=== PATIENT | female | born 1940 | race Caucasian/White ===

== ENCOUNTER 2019-03-06 14:49 | Inpatient (IN) | payer MEDICARE, MEDICAID ==
[~2019-03-06] VITALS: Ht 154.9 cm; Wt 45.2 kg
[2019-03-06] MEDS ORDERED: 0.9% SODIUM CHLORIDE 10 ML SYRINGE IVP PRN (15:30)
[2019-03-06] MEDS ORDERED: SODIUM CHLORIDE 0.9% 1,000 ML IV ONE ×3 (15:30→20:45)
[2019-03-06 15:42] LABS: BASOPHILS % (AUTO) 0.1 % (0.0-2.0); EOSINOPHILS % (AUTO) 0.1 % (1.0-6.0); HEMATOCRIT 38.2 % (36-46); LYMPHOCYTES # (AUTO) 0.4 K/uL (1.0-4.8); LYMPHOCYTES % (AUTO) 2.1 % (22.0-44.0); MEAN CORPUSCULAR HEMOGLOBIN 28.3 pg (26.0-34.0); MEAN CORPUSCULAR HGB CONC 31.5 G/dL (31.0-37.0); MEAN CORPUSCULAR VOLUME 90 fL (80-100); MONOCYTES # (AUTO) 0.4 K/uL (0.1-1.0); MONOCYTES % (AUTO) 2.3 % (2.0-9.0); NEUTROPHILS # (AUTO) 18.4 K/uL (1.8-7.7); PLATELET COUNT (AUTO) 334 K/uL (150-450); RED BLOOD CELL COUNT(AUTO) 4.25 MIL/uL (4.00-5.20); RED CELL DISTRIBUTION WIDTH 14.4 % (11.5-14.5)
[2019-03-06 15:43] LABS: NEUTROPHILS % (AUTO) 95.4 % (40.0-70.0)
[2019-03-06 16:02] LABS: CALCIUM, TOTAL 9.4 mg/dL (8.8-10.5); CREATININE 1.53 mg/dL (0.60-1.30); POTASSIUM 5.4 mmol/L (3.5-5.1)
[2019-03-06 16:08] LABS: ALBUMIN 2.9 g/dL (3.4-5.0); BILIRUBIN,TOTAL 0.7 mg/dL (0.1-1.0); INR 1.1 (0.9-1.1); TOTAL PROTEIN, SERUM 7.5 g/dL (6.4-8.2)
[2019-03-06 16:18] LABS: PLATELET MORPHOLOGY COMMENT LARGE PLTS PRESENT
[2019-03-06 16:29] LABS: APPEARANCE,URINE TURBID (CLEAR); GLUCOSE, URINE (UA) 100 mg/dL (NEGATIVE); KETONES,URINE 15 mg/dL (NEGATIVE); LEUKOCYTE ESTERASE ,URINE MODERATE (NEGATIVE); NITRATE,URINE NEGATIVE (NEGATIVE); OCCULT BLOOD,URINE SMALL (NEGATIVE); PROTEIN,URINE SEE CONFIRM (NEGATIVE)
[2019-03-06 16:30] LABS: BILIRUBIN,URINE PRELIM. POSITIVE (NEGATIVE)
[2019-03-06 16:41] LABS: BACTERIA,URINE Many /HPF (None Seen); SQUAMOUS EPITHELIAL CELL,UR Few /LPF (None Seen); SULFOSALICYLIC ACID,URINE 3+ (Negative)
[2019-03-06 16:42] LABS: INFLUENZA TYPE A NEGATIVE FOR TYPE A (NEGATIVE); INFLUENZA TYPE B NEGATIVE FOR TYPE B (NEGATIVE)
[2019-03-06] MEDS ORDERED: PIPERACILLIN/TAZO 3.375 GM/D5W 50 ML IV ONE (16:45)
[2019-03-06] MEDS ORDERED: INSULIN REGULAR, HUMAN 100 UNITS/ML SQ ONE (17:30)
[2019-03-06 19:07] LABS: GLUCOSE,POINT OF CARE 268 MG/DL (70-110)
[2019-03-06] MEDS ORDERED: ONDANSETRON HCL 4 MG/2 ML VIAL IVP PRN ×2 (19:15→20:45)
[2019-03-06] MEDS ORDERED: ACETAMINOPHEN 325 MG TABLET PO PRN ×2 (19:15→20:45)
[2019-03-06] MEDS ORDERED: MAGNESIUM HYDROXIDE SUSPENSION 30 ML UDCUP PO PRN (20:45)
[2019-03-06] MEDS ORDERED: BISACODYL 10 MG RECTAL RECTAL SUPPOSITORY PR PRN (20:45)
[2019-03-06] MEDS ORDERED: HYDROCODONE/ACETAMINOPHEN 5-325 MG TABLET PO PRN (20:45)
[2019-03-06] MEDS ORDERED: CefTRIAXone 1 GM/DEXTROSE 50 ML IV ONE (20:45)
[2019-03-06] MEDS ORDERED: MORPHINE SULFATE 2 MG/ML SYRINGE IVP PRN (20:45)
[2019-03-06] MEDS ORDERED: ZOLPIDEM TARTRATE 5 MG TABLET PO PRN (20:45)
[2019-03-06] MEDS: DOCUSATE SODIUM 100 MG CAPSULE PO SCH (21:09)
[2019-03-06 22:43] LABS: GLUCOSE,POINT OF CARE 214 MG/DL (70-110)
[2019-03-07 09:00] VITALS: BP 151/74
[2019-03-07] MEDS: PANTOPRAZOLE SODIUM 40 MG DR TABLET PO SCH (09:21)
[2019-03-07] MEDS: DOCUSATE SODIUM 100 MG CAPSULE PO SCH ×2 (09:21→22:04)
[2019-03-07] MEDS: HEPARIN SODIUM,PORCINE 5,000 UNITS/ML VIAL SQ SCH ×4 (09:22→23:03)
[2019-03-07 11:02] LABS: BASOPHILS % (AUTO) 0.1 % (0.0-2.0); EOSINOPHILS % (AUTO) 0.1 % (1.0-6.0); HEMATOCRIT 31.8 % (36-46); HEMOGLOBIN 10.5 g/dL (12.0-16.0); LYMPHOCYTES # (AUTO) 0.4 K/uL (1.0-4.8); LYMPHOCYTES % (AUTO) 3.4 % (22.0-44.0); MEAN CORPUSCULAR HEMOGLOBIN 29.3 pg (26.0-34.0); MEAN CORPUSCULAR HGB CONC 32.9 G/dL (31.0-37.0); MEAN CORPUSCULAR VOLUME 89 fL (80-100); MONOCYTES # (AUTO) 0.4 K/uL (0.1-1.0); MONOCYTES % (AUTO) 2.9 % (2.0-9.0); NEUTROPHILS # (AUTO) 12.5 K/uL (1.8-7.7); PLATELET COUNT (AUTO) 295 K/uL (150-450); RED BLOOD CELL COUNT(AUTO) 3.58 MIL/uL (4.00-5.20); RED CELL DISTRIBUTION WIDTH 14.5 % (11.5-14.5)
[2019-03-07 11:03] LABS: NEUTROPHILS % (AUTO) 93.5 % (40.0-70.0)
[2019-03-07 11:57] LABS: ALBUMIN 2.3 g/dL (3.4-5.0); ALKALINE PHOSPHATASE 75 U/L (46-116); ANION GAP 11 mmol/L (8-16); ASPARTATE AMINOTRANSFERASE 11 U/L (15-37); BILIRUBIN,TOTAL 0.5 mg/dL (0.1-1.0); CALCIUM, TOTAL 8.2 mg/dL (8.8-10.5); CARBON DIOXIDE 23 mmol/L (22-29); CHLORIDE 110 mmol/L (98-107); CREATININE 0.84 mg/dL (0.60-1.30); GLUCOSE,RANDOM 189 mg/dL (70-110); POTASSIUM 3.5 mmol/L (3.5-5.1); SODIUM SERUM 144 mmol/L (136-145); TOTAL PROTEIN, SERUM 6.2 g/dL (6.4-8.2); UREA NITROGEN, BLOOD 25 mg/dL (7-18)
[2019-03-07 11:58] LABS: GLOMERULAR FILTR. RATE CALC > 60 mL/min (>60)
[2019-03-07 12:06] LABS: ALANINE AMINOTRANSFERASE 5 U/L (12-78)
[2019-03-07 12:34] VITALS: BP 148/73
[2019-03-07 16:15] VITALS: BP 159/88
[2019-03-07] MEDS: SODIUM CHLORIDE 0.9% 1,000 ML IV SCH (18:18)
[2019-03-07 19:54] VITALS: BP 157/76
[2019-03-07] MEDS: CefTRIAXone 1 GM/DEXTROSE 50 ML IV SCH (22:04)
[2019-03-07 23:22] VITALS: BP 162/78
[2019-03-08 06:07] VITALS: BP 163/89
[2019-03-08] MEDS: SODIUM CHLORIDE 0.9% 1,000 ML IV SCH ×2 (06:14→17:29)
[2019-03-08 06:43] LABS: BASOPHILS % (AUTO) 0.2 % (0.0-2.0); EOSINOPHILS % (AUTO) 0 % (1.0-6.0); HEMATOCRIT 29.9 % (36-46); HEMOGLOBIN 9.8 g/dL (12.0-16.0); LYMPHOCYTES # (AUTO) 0.6 K/uL (1.0-4.8); LYMPHOCYTES % (AUTO) 7.8 % (22.0-44.0); MEAN CORPUSCULAR HEMOGLOBIN 29.2 pg (26.0-34.0); MEAN CORPUSCULAR HGB CONC 32.7 G/dL (31.0-37.0); MEAN CORPUSCULAR VOLUME 89 fL (80-100); MONOCYTES # (AUTO) 0.4 K/uL (0.1-1.0); MONOCYTES % (AUTO) 4.6 % (2.0-9.0); PLATELET COUNT (AUTO) 295 K/uL (150-450); RED BLOOD CELL COUNT(AUTO) 3.35 MIL/uL (4.00-5.20); RED CELL DISTRIBUTION WIDTH 14.5 % (11.5-14.5)
[2019-03-08 06:50] LABS: NEUTROPHILS % (AUTO) 87.4 % (40.0-70.0)
[2019-03-08 07:09] LABS: ALANINE AMINOTRANSFERASE 6 U/L (12-78); ALBUMIN 2.1 g/dL (3.4-5.0); ALKALINE PHOSPHATASE 78 U/L (46-116); ANION GAP 11 mmol/L (8-16); ASPARTATE AMINOTRANSFERASE 8 U/L (15-37); BILIRUBIN,TOTAL 0.3 mg/dL (0.1-1.0); CALCIUM, TOTAL 8.1 mg/dL (8.8-10.5); CARBON DIOXIDE 24 mmol/L (22-29); CHLORIDE 111 mmol/L (98-107); CREATININE 0.77 mg/dL (0.60-1.30); GLUCOSE,RANDOM 203 mg/dL (70-110); POTASSIUM 3.1 mmol/L (3.5-5.1); SODIUM SERUM 146 mmol/L (136-145); TOTAL PROTEIN, SERUM 5.9 g/dL (6.4-8.2); UREA NITROGEN, BLOOD 16 mg/dL (7-18)
[2019-03-08 07:14] LABS: GLOMERULAR FILTR. RATE CALC > 60 mL/min (>60)
[2019-03-08 07:27] LABS: HEMOGLOBIN A1C 8.5 % (4.5-6.2)
[2019-03-08] MEDS: HEPARIN SODIUM,PORCINE 5,000 UNITS/ML VIAL SQ SCH ×2 (08:38→17:26)
[2019-03-08] MEDS: DOCUSATE SODIUM 100 MG CAPSULE PO SCH ×2 (08:39→21:00)
[2019-03-08] MEDS: PANTOPRAZOLE SODIUM 40 MG DR TABLET PO SCH (08:39)
[2019-03-08] MEDS ORDERED: POTASSIUM CHLORIDE 20 MEQ ER TABLET PO ONE (10:15)
[2019-03-08] MEDS ORDERED: POTASSIUM CHL 10 MEQ/WATER 50 ML IV ONE ×2 (10:46→12:24)
[2019-03-08 12:03] VITALS: BP 164/97
[2019-03-08] MEDS: HydrALAZINE HCL 25 MG TABLET PO SCH ×3 (17:27→21:08)
[2019-03-08] MEDS: POTASSIUM CHL 10 MEQ/WATER 50 ML IV SCH ×4 (17:27→21:06)
[2019-03-08 19:07] VITALS: BP 157/88
[2019-03-08 20:33] VITALS: BP 139/66
[2019-03-08] MEDS: CefTRIAXone 1 GM/DEXTROSE 50 ML IV SCH (22:30)
[2019-03-08 23:13] VITALS: BP 159/77
[2019-03-09] VITALS (7 sets, daily range): BP systolic 115–167; BP diastolic 58–83
[2019-03-09 05:23] LABS: GLUCOMETER DEV NAME(LOC) 5N.2; GLUCOSE,POINT OF CARE 157 MG/DL (70-110)
[2019-03-09] MEDS: SODIUM CHLORIDE 0.9% 1,000 ML IV SCH ×2 (05:26→20:42)
[2019-03-09 06:43] LABS: BASOPHILS % (AUTO) 0.3 % (0.0-2.0); EOSINOPHILS % (AUTO) 0.4 % (1.0-6.0); HEMATOCRIT 32.2 % (36-46); HEMOGLOBIN 10.4 g/dL (12.0-16.0); LYMPHOCYTES # (AUTO) 0.9 K/uL (1.0-4.8); LYMPHOCYTES % (AUTO) 13.8 % (22.0-44.0); MEAN CORPUSCULAR HEMOGLOBIN 28.6 pg (26.0-34.0); MEAN CORPUSCULAR HGB CONC 32.3 G/dL (31.0-37.0); MEAN CORPUSCULAR VOLUME 88 fL (80-100); MONOCYTES # (AUTO) 0.3 K/uL (0.1-1.0); MONOCYTES % (AUTO) 5.1 % (2.0-9.0); NEUTROPHILS # (AUTO) 5.3 K/uL (1.8-7.7); NEUTROPHILS % (AUTO) 80.4 % (40.0-70.0); PLATELET COUNT (AUTO) 380 K/uL (150-450); RED BLOOD CELL COUNT(AUTO) 3.65 MIL/uL (4.00-5.20); RED CELL DISTRIBUTION WIDTH 14.5 % (11.5-14.5)
[2019-03-09 07:01] LABS: ANION GAP 14 mmol/L (8-16); CALCIUM, TOTAL 8.2 mg/dL (8.8-10.5); CARBON DIOXIDE 23 mmol/L (22-29); CHLORIDE 103 mmol/L (98-107); CREATININE 0.69 mg/dL (0.60-1.30); GLOMERULAR FILTR. RATE CALC > 60 mL/min (>60); GLUCOSE,RANDOM 197 mg/dL (70-110); POTASSIUM 3.8 mmol/L (3.5-5.1); SODIUM SERUM 140 mmol/L (136-145); UREA NITROGEN, BLOOD 8 mg/dL (7-18)
[2019-03-09] MEDS: HydrALAZINE HCL 25 MG TABLET PO SCH ×5 (08:38→21:00)
[2019-03-09] MEDS: HEPARIN SODIUM,PORCINE 5,000 UNITS/ML VIAL SQ SCH ×4 (08:38→22:58)
[2019-03-09] MEDS: DOCUSATE SODIUM 100 MG CAPSULE PO SCH ×2 (08:44→20:40)
[2019-03-09] MEDS: PANTOPRAZOLE SODIUM 40 MG DR TABLET PO SCH (08:44)
[2019-03-09] MEDS ORDERED: MAGNESIUM OXIDE 400 MG TABLET PO ONE (10:00)
[2019-03-09] MEDS ORDERED: DEXTROSE 50%-WATER 25 GM/50 ML SYRINGE IVP PRN (10:00)
[2019-03-09] MEDS: INSULIN LISPRO 100 UNITS/ML SQ PRN (11:10)
[2019-03-09 11:11] LABS: GLUCOMETER DEV NAME(LOC) 5N.2; GLUCOSE,POINT OF CARE 132 MG/DL (70-110)
[2019-03-09 12:02] LABS: GLUCOMETER DEV NAME(LOC) 5N.1; GLUCOSE,POINT OF CARE 231 MG/DL (70-110)
[2019-03-09] MEDS ORDERED: MAGNESIUM SULFATE 2 GM/WATER 50 ML IV ONE (12:15)
[2019-03-09] MEDS: CefoTEtan DISOD 1 GM/DEXTROSE 50 ML IV SCH (16:22)
[2019-03-09 20:06] LABS: GLUCOMETER DEV NAME(LOC) 5N.1; GLUCOSE,POINT OF CARE 113 MG/DL (70-110)
[2019-03-10] MEDS: CefoTEtan DISOD 1 GM/DEXTROSE 50 ML IV SCH ×2 (03:49→15:36)
[2019-03-10 06:01] VITALS: BP 152/75
[2019-03-10 07:54] VITALS: BP 156/72
[2019-03-10] MEDS: DOCUSATE SODIUM 100 MG CAPSULE PO SCH ×2 (10:01→21:00)
[2019-03-10] MEDS: HydrALAZINE HCL 25 MG TABLET PO SCH ×4 (10:01→21:00)
[2019-03-10] MEDS: AmLODIPine BESYLATE 5 MG TABLET PO SCH (10:01)
[2019-03-10] MEDS: PANTOPRAZOLE SODIUM 40 MG DR TABLET PO SCH (10:01)
[2019-03-10] MEDS: HEPARIN SODIUM,PORCINE 5,000 UNITS/ML VIAL SQ SCH ×3 (10:01→23:06)
[2019-03-10] MEDS: SODIUM CHLORIDE 0.9% 1,000 ML IV SCH (10:02)
[2019-03-10 12:13] VITALS: BP 149/75
[2019-03-10] MEDS: INSULIN LISPRO 100 UNITS/ML SQ PRN (13:30)
[2019-03-10 17:10] VITALS: BP 149/71
[2019-03-10 19:10] VITALS: BP 146/72
[2019-03-10] MEDS ORDERED: MAGNESIUM SULFATE 3 GM in DEXTROSE 5%-WATER 100 ML IV ONE (22:15)
[2019-03-10 23:44] VITALS: BP 145/75
[2019-03-11] MEDS: CefoTEtan DISOD 1 GM/DEXTROSE 50 ML IV SCH ×2 (03:13→14:41)
[2019-03-11 04:21] VITALS: BP 136/63
[2019-03-11] MEDS: SODIUM CHLORIDE 0.9% 1,000 ML IV SCH ×2 (04:40→20:47)
[2019-03-11 05:10] LABS: GLUCOMETER DEV NAME(LOC) 5N.2; GLUCOSE,POINT OF CARE 182 MG/DL (70-110)
[2019-03-11 05:10] LABS: GLUCOMETER DEV NAME(LOC) 5N.2; GLUCOSE,POINT OF CARE 140 MG/DL (70-110)
[2019-03-11 05:11] LABS: GLUCOMETER DEV NAME(LOC) 5N.2; GLUCOSE,POINT OF CARE 109 MG/DL (70-110)
[2019-03-11 05:11] LABS: GLUCOMETER DEV NAME(LOC) 5N.1; GLUCOSE,POINT OF CARE 115 MG/DL (70-110)
[2019-03-11 07:07] VITALS: BP 158/68
[2019-03-11] MEDS: HEPARIN SODIUM,PORCINE 5,000 UNITS/ML VIAL SQ SCH ×2 (08:00→16:00)
[2019-03-11] MEDS: PANTOPRAZOLE SODIUM 40 MG DR TABLET PO SCH (09:00)
[2019-03-11] MEDS: DOCUSATE SODIUM 100 MG CAPSULE PO SCH ×2 (09:00→20:01)
[2019-03-11] MEDS: HydrALAZINE HCL 25 MG TABLET PO SCH ×4 (09:00→20:01)
[2019-03-11] MEDS: AmLODIPine BESYLATE 5 MG TABLET PO SCH (09:00)
[2019-03-11 11:38] VITALS: BP 164/79
[2019-03-11] MEDS: INSULIN LISPRO 100 UNITS/ML SQ PRN (12:34)
[2019-03-11 15:09] VITALS: BP 157/73
[2019-03-11 19:11] VITALS: BP 128/61
[2019-03-12] VITALS (7 sets, daily range): BP systolic 93–164; BP diastolic 56–103
[2019-03-12] MEDS: CefoTEtan DISOD 1 GM/DEXTROSE 50 ML IV SCH ×2 (03:16→14:28)
[2019-03-12 06:43] LABS: GLUCOMETER DEV NAME(LOC) 5N.2; GLUCOSE,POINT OF CARE 116 MG/DL (70-110)
[2019-03-12 06:43] LABS: GLUCOMETER DEV NAME(LOC) 5N.2; GLUCOSE,POINT OF CARE 177 MG/DL (70-110)
[2019-03-12 06:43] LABS: GLUCOMETER DEV NAME(LOC) 5N.2; GLUCOSE,POINT OF CARE 131 MG/DL (70-110)
[2019-03-12] MEDS: INSULIN LISPRO 100 UNITS/ML SQ PRN (06:47)
[2019-03-12] MEDS: HEPARIN SODIUM,PORCINE 5,000 UNITS/ML VIAL SQ SCH ×4 (08:00→23:54)
[2019-03-12] MEDS: AmLODIPine BESYLATE 5 MG TABLET PO SCH (08:56)
[2019-03-12] MEDS: PANTOPRAZOLE SODIUM 40 MG DR TABLET PO SCH (08:56)
[2019-03-12] MEDS: DOCUSATE SODIUM 100 MG CAPSULE PO SCH ×2 (08:56→21:00)
[2019-03-12] MEDS: HydrALAZINE HCL 25 MG TABLET PO SCH ×4 (08:56→21:00)
[2019-03-12] MEDS: SODIUM CHLORIDE 0.9% 1,000 ML IV SCH (12:15)
[2019-03-12] MEDS ORDERED: HydrALAZINE HCL 20 MG/ML VIAL IVP ONE (16:00)
[2019-03-12 20:09] LABS: GLUCOMETER DEV NAME(LOC) 5N.1; GLUCOSE,POINT OF CARE 117 MG/DL (70-110)
[2019-03-12 20:09] LABS: GLUCOMETER DEV NAME(LOC) 5N.1; GLUCOSE,POINT OF CARE 159 MG/DL (70-110)
[2019-03-12 20:09] LABS: GLUCOMETER DEV NAME(LOC) 5N.1; GLUCOSE,POINT OF CARE 88 MG/DL (70-110)
[2019-03-12 20:58] LABS: GLUCOMETER DEV NAME(LOC) 5N.1; GLUCOSE,POINT OF CARE 179 MG/DL (70-110)
[2019-03-13 00:36] VITALS: BP 144/68
[2019-03-13] MEDS: CefoTEtan DISOD 1 GM/DEXTROSE 50 ML IV SCH ×2 (03:46→13:39)
[2019-03-13] MEDS: SODIUM CHLORIDE 0.9% 1,000 ML IV SCH (03:46)
[2019-03-13 04:32] VITALS: BP 158/70
[2019-03-13 07:38] VITALS: BP 140/61
[2019-03-13] MEDS: HEPARIN SODIUM,PORCINE 5,000 UNITS/ML VIAL SQ SCH (09:19)
[2019-03-13] MEDS: PANTOPRAZOLE SODIUM 40 MG DR TABLET PO SCH (09:19)
[2019-03-13] MEDS: DOCUSATE SODIUM 100 MG CAPSULE PO SCH (09:19)
[2019-03-13] MEDS: HydrALAZINE HCL 25 MG TABLET PO SCH ×2 (09:20→13:00)
[2019-03-13] MEDS: AmLODIPine BESYLATE 5 MG TABLET PO SCH (09:20)
[2019-03-13 11:35] VITALS: BP 151/71
[2019-03-13 20:19] LABS: GLUCOMETER DEV NAME(LOC) 5N.1; GLUCOSE,POINT OF CARE 165 MG/DL (70-110)
[2019-03-13 20:20] LABS: GLUCOMETER DEV NAME(LOC) 5N.2; GLUCOSE,POINT OF CARE 202 MG/DL (70-110)
== END 2019-03-13 15:10 | DRG 871 ==
LOC: EMS 14:51 → 5N 03-07 05:30
PROVIDERS: ADMIT Internal Medicine; ATTEND Internal Medicine
DX: A41.9 Sepsis, unspecified organism (principal); G93.41 Metabolic encephalopathy; N39.0 Urinary tract infection, site not specified; N17.9 Acute kidney failure, unspecified; Z16.12 Extended spectrum beta lactamase (ESBL) resistance; E87.5 Hyperkalemia; B96.89 Other specified bacterial agents as the cause of diseases classified elsewhere; E11.65 Type 2 diabetes mellitus with hyperglycemia; E83.42 Hypomagnesemia; E87.6 Hypokalemia
CPT/HCPCS: 83036; 83605; 83735; 84100; 84145; 87040; 87086; 87804; 92610; 93005; 97110; 97162; 97530; J0360; J0696; J1644; J1815; J2543; J3475; J3480; J3490; J7030; J7060

== ENCOUNTER 2019-03-16 19:15 | Inpatient (IN) | payer MEDICARE, MEDICAID ==
[~2019-03-16] VITALS: Ht 165.1 cm; Wt 54.2 kg
[2019-03-16 20:14] LABS: BASOPHILS % (AUTO) 0.1 % (0.0-2.0); EOSINOPHILS % (AUTO) 0 % (1.0-6.0); HEMATOCRIT 31.9 % (36-46); HEMOGLOBIN 10.7 g/dL (12.0-16.0); LYMPHOCYTES # (AUTO) 0.5 K/uL (1.0-4.8); LYMPHOCYTES % (AUTO) 7.7 % (22.0-44.0); MEAN CORPUSCULAR HEMOGLOBIN 28.6 pg (26.0-34.0); MEAN CORPUSCULAR HGB CONC 33.5 G/dL (31.0-37.0); MEAN CORPUSCULAR VOLUME 85 fL (80-100); MONOCYTES # (AUTO) 0.2 K/uL (0.1-1.0); MONOCYTES % (AUTO) 3.3 % (2.0-9.0); NEUTROPHILS # (AUTO) 5.6 K/uL (1.8-7.7); PLATELET COUNT (AUTO) 499 K/uL (150-450); RED BLOOD CELL COUNT(AUTO) 3.73 MIL/uL (4.00-5.20); RED CELL DISTRIBUTION WIDTH 15.5 % (11.5-14.5)
[2019-03-16 20:15] LABS: NEUTROPHILS % (AUTO) 88.9 % (40.0-70.0)
[2019-03-16] MEDS ORDERED: GLIP5 PO (20:17)
[2019-03-16] MEDS ORDERED: ASCO500 PO (20:17)
[2019-03-16] MEDS ORDERED: ZINC1CAP2 PO (20:17)
[2019-03-16] MEDS ORDERED: METO-558 PO (20:17)
[2019-03-16] MEDS ORDERED: AMLO10TA7 PO (20:17)
[2019-03-16] MEDS ORDERED: HYDR25TA84 PO (20:17)
[2019-03-16] MEDS ORDERED: POTA20PA41 PO (20:17)
[2019-03-16] MEDS ORDERED: CEFO1I IV (20:17)
[2019-03-16 20:29] LABS: CREATININE 1.04 mg/dL (0.60-1.30)
[2019-03-16 20:30] LABS: ALBUMIN 2.4 g/dL (3.4-5.0); BILIRUBIN,TOTAL 0.4 mg/dL (0.1-1.0); CALCIUM, TOTAL 8.8 mg/dL (8.8-10.5); MAGNESIUM 1.7 mg/dL (1.80-2.40); TOTAL PROTEIN, SERUM 6.5 g/dL (6.4-8.2)
[2019-03-16 20:32] LABS: POTASSIUM 2.1 mmol/L (3.5-5.1)
[2019-03-16 20:40] LABS: PLATELET MORPHOLOGY COMMENT INCREASED
[2019-03-16] MEDS ORDERED: POTASSIUM CHLORIDE 20 MEQ ER TABLET PO PRN (20:45)
[2019-03-16] MEDS ORDERED: 0.9% SODIUM CHLORIDE 10 ML SYRINGE IVP PRN (21:00)
[2019-03-16] MEDS ORDERED: ONDANSETRON HCL 4 MG/2 ML VIAL IVP PRN (21:00)
[2019-03-16] MEDS ORDERED: ACETAMINOPHEN 325 MG TABLET PO PRN (21:00)
[2019-03-16] MEDS ORDERED: ASPIRIN 325 MG TABLET PO ONE (21:15)
[2019-03-16] MEDS ORDERED: ASPIRIN 300 MG RECTAL SUPPOSITORY PR ONE (21:45)
[2019-03-16] MEDS ORDERED: POTASSIUM CHLORIDE 10% 40 MEQ/30 ML LIQUID UDCUP PO ONE (21:45)
[2019-03-16] MEDS: POTASSIUM CHL 10 MEQ/WATER 50 ML IV PRN ×2 (22:43→23:37)
[2019-03-16] MEDS ORDERED: CefoTEtan DISODIUM 1 GM/VIAL IV SCH (23:00)
[2019-03-17] VITALS (9 sets, daily range): BP systolic 79–147; BP diastolic 36–67
[2019-03-17] MEDS: POTASSIUM CHL 10 MEQ/WATER 50 ML IV PRN ×6 (00:43→12:05)
[2019-03-17] MEDS: CefoTEtan DISOD 1 GM/DEXTROSE 50 ML IV SCH ×2 (03:07→14:39)
[2019-03-17 04:31] LABS: BASOPHILS % (AUTO) 0.1 % (0.0-2.0); EOSINOPHILS % (AUTO) 0 % (1.0-6.0); HEMATOCRIT 29.6 % (36-46); HEMOGLOBIN 10.1 g/dL (12.0-16.0); LYMPHOCYTES # (AUTO) 0.5 K/uL (1.0-4.8); LYMPHOCYTES % (AUTO) 6.4 % (22.0-44.0); MEAN CORPUSCULAR HEMOGLOBIN 29.3 pg (26.0-34.0); MEAN CORPUSCULAR HGB CONC 33.9 G/dL (31.0-37.0); MEAN CORPUSCULAR VOLUME 86 fL (80-100); MONOCYTES # (AUTO) 0.3 K/uL (0.1-1.0); MONOCYTES % (AUTO) 3.2 % (2.0-9.0); NEUTROPHILS # (AUTO) 7.3 K/uL (1.8-7.7); PLATELET COUNT (AUTO) 525 K/uL (150-450); RED BLOOD CELL COUNT(AUTO) 3.44 MIL/uL (4.00-5.20); RED CELL DISTRIBUTION WIDTH 15.7 % (11.5-14.5)
[2019-03-17 04:32] LABS: NEUTROPHILS % (AUTO) 90.3 % (40.0-70.0)
[2019-03-17 04:40] LABS: ALBUMIN 2.4 g/dL (3.4-5.0); BILIRUBIN,TOTAL 0.4 mg/dL (0.1-1.0); CALCIUM, TOTAL 8.7 mg/dL (8.8-10.5); CREATININE 1.3 mg/dL (0.60-1.30); MAGNESIUM 1.5 mg/dL (1.80-2.40); TOTAL PROTEIN, SERUM 6.3 g/dL (6.4-8.2)
[2019-03-17 04:43] LABS: POTASSIUM 2.9 mmol/L (3.5-5.1)
[2019-03-17] MEDS ORDERED: DEXTROSE 50%-WATER 25 GM/50 ML SYRINGE IVP PRN ×2 (05:15→06:15)
[2019-03-17] MEDS ORDERED: MAGNESIUM OXIDE 400 MG TABLET PO PRN (05:15)
[2019-03-17] MEDS ORDERED: MAGNESIUM SULFATE 4 GM/WATER 100 ML IV PRN (05:15)
[2019-03-17] MEDS ORDERED: MAGNESIUM SULFATE 2 GM/WATER 50 ML IV PRN (05:15)
[2019-03-17] MEDS ORDERED: PNEUMOCOCCAL VACCINE POLYVALENT 0.5 ML VIAL [PPSV23] IM ONE (05:30)
[2019-03-17] MEDS ORDERED: INFLUENZA VIRUS VACCINE QVS 2019-20 (3YR+)/PF 60 MCG/0.5 ML SYRINGE IM ONE (05:30)
[2019-03-17] MEDS: INSULIN LISPRO 100 UNITS/ML SQ PRN ×3 (06:01→17:42)
[2019-03-17] MEDS ORDERED: INSULIN LISPRO 100 UNITS/ML SQ PRN (06:15)
[2019-03-17] MEDS ORDERED: ACETAMINOPHEN 325 MG TABLET PO PRN (06:15)
[2019-03-17] MEDS ORDERED: MAGNESIUM HYDROXIDE SUSPENSION 30 ML UDCUP PO PRN (06:15)
[2019-03-17] MEDS ORDERED: 0.9% SODIUM CHLORIDE 10 ML SYRINGE IVP PRN (06:15)
[2019-03-17] MEDS ORDERED: ONDANSETRON HCL 4 MG/2 ML VIAL IVP PRN (06:15)
[2019-03-17] MEDS ORDERED: OxyCODONE HCL/ACETAMINOPHEN 5-325 MG TABLET PO PRN ×2 (06:15)
[2019-03-17] MEDS: AmLODIPine BESYLATE 10 MG TABLET PO SCH (08:45)
[2019-03-17] MEDS: METOPROLOL SUCCINATE 50 MG ER TABLET PO SCH (08:45)
[2019-03-17] MEDS: HydrALAZINE HCL 25 MG TABLET PO SCH ×3 (08:45→21:00)
[2019-03-17] MEDS ORDERED: DOCUSATE SODIUM 100 MG CAPSULE PO SCH (09:00)
[2019-03-17] MEDS: MULTIVITAMINS, THERAPEUTIC 15 ML UDCUP PO SCH (10:30)
[2019-03-17] MEDS: ASPIRIN 81 MG CHEWABLE TABLET PO SCH (10:45)
[2019-03-17] MEDS ORDERED: METOPROLOL TARTRATE 5 MG/5 ML VIAL IVP ONE (11:45)
[2019-03-17 12:19] LABS: B-TYPE NATRIURETIC PEPTIDE 128 pg/mL (0-100)
[2019-03-17] MEDS ORDERED: DIGOXIN 250 MCG/ML 2 ML AMP IVP ONE (12:30)
[2019-03-17] MEDS ORDERED: SODIUM CHLORIDE 0.9% 500 ML IV SCH (12:48)
[2019-03-17] MEDS ORDERED: SODIUM CHLORIDE 0.9% 500 ML IV ONE ×2 (13:00→17:15)
[2019-03-17] MEDS: SODIUM CHLORIDE 0.9% 1,000 ML IV SCH ×2 (14:40→23:00)
[2019-03-17 14:58] LABS: GLUCOMETER DEV NAME(LOC) 5S.1; GLUCOSE,POINT OF CARE 263 MG/DL (70-110)
[2019-03-17 14:59] LABS: GLUCOMETER DEV NAME(LOC) 5S.1; GLUCOSE,POINT OF CARE 288 MG/DL (70-110)
[2019-03-17 15:00] LABS: GLUCOMETER DEV NAME(LOC) 5N.2; GLUCOSE,POINT OF CARE 331 MG/DL (70-110)
[2019-03-17] MEDS ORDERED: SODIUM CHLORIDE 0.9% 1,000 ML IV SCH (19:30)
[2019-03-17 21:12] LABS: FREE T4 (FREE THYROXINE) 0.91 ng/dL (0.76-1.46); THYROID STIMULATING HORMONE 1.32 uIU/mL (0.36-3.74)
[2019-03-18 00:34] VITALS: BP 130/53
[2019-03-18] MEDS: CefoTEtan DISOD 1 GM/DEXTROSE 50 ML IV SCH ×2 (02:53→15:08)
[2019-03-18] MEDS ORDERED: DIGOXIN 250 MCG/ML 2 ML AMP IVP ONE (03:15)
[2019-03-18 04:16] VITALS: BP 111/45
[2019-03-18 06:39] LABS: GLUCOMETER DEV NAME(LOC) 5N.2; GLUCOSE,POINT OF CARE 226 MG/DL (70-110)
[2019-03-18 06:39] LABS: GLUCOMETER DEV NAME(LOC) 5N.1; GLUCOSE,POINT OF CARE 310 MG/DL (70-110)
[2019-03-18 06:39] LABS: GLUCOMETER DEV NAME(LOC) 5N.1; GLUCOSE,POINT OF CARE 342 MG/DL (70-110)
[2019-03-18] MEDS: INSULIN LISPRO 100 UNITS/ML SQ PRN ×4 (06:52→22:38)
[2019-03-18 07:11] VITALS: BP 123/56
[2019-03-18] MEDS: MULTIVITAMINS, THERAPEUTIC 15 ML UDCUP PO SCH (09:00)
[2019-03-18] MEDS: HydrALAZINE HCL 25 MG TABLET PO SCH ×3 (09:00→21:00)
[2019-03-18] MEDS: METOPROLOL SUCCINATE 50 MG ER TABLET PO SCH ×2 (09:00→21:00)
[2019-03-18] MEDS: ASPIRIN 81 MG CHEWABLE TABLET PO SCH (09:00)
[2019-03-18] MEDS: AmLODIPine BESYLATE 10 MG TABLET PO SCH (09:00)
[2019-03-18 09:42] LABS: EOSINOPHILS % (AUTO) 0 % (1.0-6.0); HEMATOCRIT 24.3 % (36-46); HEMOGLOBIN 8.4 g/dL (12.0-16.0); LYMPHOCYTES # (AUTO) 0.4 K/uL (1.0-4.8); LYMPHOCYTES % (AUTO) 3.9 % (22.0-44.0); MEAN CORPUSCULAR HEMOGLOBIN 29.8 pg (26.0-34.0); MEAN CORPUSCULAR HGB CONC 34.8 G/dL (31.0-37.0); MEAN CORPUSCULAR VOLUME 86 fL (80-100); MONOCYTES # (AUTO) 0.3 K/uL (0.1-1.0); MONOCYTES % (AUTO) 2.4 % (2.0-9.0); NEUTROPHILS # (AUTO) 10.2 K/uL (1.8-7.7); NEUTROPHILS % (AUTO) 93.7 % (40.0-70.0); PLATELET COUNT (AUTO) 438 K/uL (150-450); RED BLOOD CELL COUNT(AUTO) 2.84 MIL/uL (4.00-5.20); RED CELL DISTRIBUTION WIDTH 15.6 % (11.5-14.5)
[2019-03-18 10:06] LABS: SALICYLATE 3.4 mg/dL (2.8-20.0)
[2019-03-18 10:17] LABS: GLUCOMETER DEV NAME(LOC) 5N.1; GLUCOSE,POINT OF CARE 270 MG/DL (70-110)
[2019-03-18 10:17] LABS: ANION GAP 14 mmol/L (8-16); CALCIUM, TOTAL 8.1 mg/dL (8.8-10.5); CARBON DIOXIDE 22 mmol/L (22-29); CHLORIDE 113 mmol/L (98-107); CHOL/HDL RATIO 3.1 (3.9-5.7); CHOLESTEROL 144 mg/dL (131-200); CREATININE 1.28 mg/dL (0.60-1.30); GLOMERULAR FILTR. RATE CALC 40 mL/min (>60); GLUCOSE,RANDOM 233 mg/dL (70-110); HDL CHOLESTEROL 47 mg/dL (40-60); SODIUM SERUM 149 mmol/L (136-145); TRIGLYCERIDES 100 mg/dL (15-150); UREA NITROGEN, BLOOD 24 mg/dL (7-18)
[2019-03-18 10:18] LABS: LDL CHOL (CALC.) 77 mg/dL (0-130); THYROID STIMULATING HORMONE 1.36 uIU/mL (0.36-3.74)
[2019-03-18 10:20] LABS: PHOSPHORUS 0.9 mg/dL (2.5-4.9); POTASSIUM 2.8 mmol/L (3.5-5.1)
[2019-03-18] MEDS: POTASSIUM CHL 10 MEQ/WATER 50 ML IV PRN ×5 (10:28→22:27)
[2019-03-18] MEDS ORDERED: SODIUM PHOS,M-BASIC-D-BASIC 30 MEQ in DEXTROSE 5%-WATER 150 ML IV ONE (10:30)
[2019-03-18 10:53] LABS: LACTIC ACID 2.1 mmol/L (0.4-2.0)
[2019-03-18 11:10] VITALS: BP 162/73
[2019-03-18 11:18] LABS: ACETAMINOPHEN < 2 mcg/mL (10-30)
[2019-03-18] MEDS ORDERED: SODIUM PHOS,M-BASIC-D-BASIC 30 MMOL in DEXTROSE 5%-WATER 250 ML IV ONE (11:30)
[2019-03-18 12:00] LABS: APPEARANCE,URINE CLOUDY (CLEAR); BILIRUBIN,URINE NEGATIVE (NEGATIVE); GLUCOSE, URINE (UA) 500 mg/dL (NEGATIVE); KETONES,URINE 40 mg/dL (NEGATIVE); LEUKOCYTE ESTERASE ,URINE SMALL (NEGATIVE); NITRATE,URINE NEGATIVE (NEGATIVE); OCCULT BLOOD,URINE NEGATIVE (NEGATIVE); PH,URINE 5.5 (5.0-8.0); PROTEIN,URINE TRACE (NEGATIVE); UROBILINOGEN,URINE 0.2 mg/dL (<=1.0)
[2019-03-18 12:06] LABS: BACTERIA,URINE Few /HPF (None Seen); RBC,URINE None Seen /HPF (0-2); YEAST,URINE Many /HPF (None Seen)
[2019-03-18] MEDS: DEXTROSE 5%-WATER 1,000 ML IV SCH (12:18)
[2019-03-18 12:40] LABS: CREATININE,URINE RANDOM 32.7 mg/dL (30.0-125.0); MAGNESIUM,URINE RANDOM 6.3 mg/dL (1.0-13.0); POTASSIUM,URINE RANDOM 26 mmol/L (12-75); PROTEIN,URINE RANDOM 63 mg/dL (0-11.9); SODIUM,URINE RANDOM 75 mmol/l (20-110); UREA NITROGEN,URINE RANDOM 415 mg/dL (350-1000)
[2019-03-18] MEDS ORDERED: SODIUM CHLORIDE 0.9% 250 ML IV ONE (14:05)
[2019-03-18 14:57] VITALS: BP 118/48
[2019-03-18] MEDS ORDERED: SODIUM CHLORIDE 0.9% 500 ML IV ONE (17:15)
[2019-03-18 18:49] LABS: CALCIUM, TOTAL 7.5 mg/dL (8.8-10.5); CREATININE 1.04 mg/dL (0.60-1.30); MAGNESIUM 1.8 mg/dL (1.80-2.40); PHOSPHORUS 4.5 mg/dL (2.5-4.9); POTASSIUM 3.3 mmol/L (3.5-5.1)
[2019-03-18 19:18] VITALS: BP 159/73
[2019-03-18 19:56] LABS: GLUCOMETER DEV NAME(LOC) 5N.1; GLUCOSE,POINT OF CARE 330 MG/DL (70-110)
[2019-03-18 19:56] LABS: GLUCOMETER DEV NAME(LOC) 5N.1; GLUCOSE,POINT OF CARE 223 MG/DL (70-110)
[2019-03-19] VITALS (14 sets, daily range): BP systolic 95–143; BP diastolic 42–69
[2019-03-19] MEDS: CefoTEtan DISOD 1 GM/DEXTROSE 50 ML IV SCH (01:24)
[2019-03-19] MEDS: POTASSIUM CHL 10 MEQ/WATER 50 ML IV PRN ×2 (01:24→04:06)
[2019-03-19 06:27] LABS: GLUCOMETER DEV NAME(LOC) 5N.1; GLUCOSE,POINT OF CARE 300 MG/DL (70-110)
[2019-03-19] MEDS: INSULIN LISPRO 100 UNITS/ML SQ PRN ×4 (06:32→21:10)
[2019-03-19] MEDS: DEXTROSE 5%-WATER 1,000 ML IV SCH (06:33)
[2019-03-19 08:03] LABS: BASOPHILS % (AUTO) 0.1 % (0.0-2.0); EOSINOPHILS % (AUTO) 0 % (1.0-6.0); HEMATOCRIT 22.1 % (36-46); HEMOGLOBIN 7.6 g/dL (12.0-16.0); LYMPHOCYTES # (AUTO) 0.4 K/uL (1.0-4.8); LYMPHOCYTES % (AUTO) 1.8 % (22.0-44.0); MEAN CORPUSCULAR HEMOGLOBIN 29.6 pg (26.0-34.0); MEAN CORPUSCULAR HGB CONC 34.4 G/dL (31.0-37.0); MEAN CORPUSCULAR VOLUME 86 fL (80-100); MONOCYTES # (AUTO) 0.5 K/uL (0.1-1.0); MONOCYTES % (AUTO) 2.5 % (2.0-9.0); NEUTROPHILS # (AUTO) 18.4 K/uL (1.8-7.7); PLATELET COUNT (AUTO) 426 K/uL (150-450); RED BLOOD CELL COUNT(AUTO) 2.56 MIL/uL (4.00-5.20); RED CELL DISTRIBUTION WIDTH 16.7 % (11.5-14.5)
[2019-03-19 08:25] LABS: NEUTROPHILS % (AUTO) 95.6 % (40.0-70.0)
[2019-03-19 08:47] LABS: ALBUMIN 2.2 g/dL (3.4-5.0); BILIRUBIN,TOTAL 0.3 mg/dL (0.1-1.0); CALCIUM, TOTAL 7.7 mg/dL (8.8-10.5); CREATININE 1.16 mg/dL (0.60-1.30); MAGNESIUM 1.6 mg/dL (1.80-2.40); PHOSPHORUS 2.4 mg/dL (2.5-4.9); TOTAL PROTEIN, SERUM 5.4 g/dL (6.4-8.2)
[2019-03-19] MEDS: MULTIVITAMINS, THERAPEUTIC 15 ML UDCUP PO SCH (09:00)
[2019-03-19] MEDS: AmLODIPine BESYLATE 10 MG TABLET PO SCH (09:00)
[2019-03-19] MEDS: HydrALAZINE HCL 25 MG TABLET PO SCH (09:00)
[2019-03-19] MEDS: METOPROLOL SUCCINATE 50 MG ER TABLET PO SCH ×2 (09:00→21:00)
[2019-03-19] MEDS: ASPIRIN 81 MG CHEWABLE TABLET PO SCH (09:00)
[2019-03-19] MEDS ORDERED: MAGNESIUM SULFATE 4 GM/WATER 100 ML IV ONE (09:30)
[2019-03-19] MEDS ORDERED: SODIUM PHOS,M-BASIC-D-BASIC 30 MEQ in DEXTROSE 5%-WATER 150 ML IV ONE (09:30)
[2019-03-19 11:24] LABS: ABG BASE EXCESS -1.1 mmol/L (-2.0-3.0); ABG CARBOXYHEMOGLOBIN 3.6 % (0.0-1.5); ABG HCO3 23.6 mmol/L (22.0-26.0); ABG METHEMOGLOBIN 0.1 % (0.0-1.5); ABG OXYGEN CONTENT 8.2 mL/dL (15.0-23.0); ABG OXYGEN SATURATION 92.5 % (95.0-98.0); ABG OXYHEMOGLOBIN 89.1 % (94.0-100.0); ABG PCO2 37 mmHg (35-45); ABG PH 7.422 (7.35-7.450); PO2, ARTERIAL BG 62.4 mmHg (75.0-83.0); SOURCE, BLOOD GAS ARTERIAL; TEMPERATURE, FAHRENHEIT, BG 98.5 FAHREN (96.0-98.6)
[2019-03-19 11:27] LABS: ABG TOTAL HEMOGLOBIN 6.5 G/dL (12.0-18.0); SITE, BLOOD GAS RT RADIAL
[2019-03-19 11:28] LABS: O2 DEVICE,BLOOD GAS CANNULA (ROOM AIR)
[2019-03-19 13:27] LABS: HEMOGLOBIN 6.4 g/dL (12.0-16.0)
[2019-03-19 13:28] LABS: HEMATOCRIT 20.1 % (36-46)
[2019-03-19] MEDS: PANTOPRAZOLE SODIUM 40 MG/VIAL IVP SCH ×2 (14:23→21:01)
[2019-03-19] MEDS: PIPERACILLIN SODIUM/TAZOBACTAM 2.25 GM in DEXTROSE 5%-WATER 50 ML IV SCH ×2 (14:23→21:01)
[2019-03-20] VITALS (7 sets, daily range): BP systolic 79–138; BP diastolic 29–70
[2019-03-20] MEDS: PIPERACILLIN SODIUM/TAZOBACTAM 2.25 GM in DEXTROSE 5%-WATER 50 ML IV SCH ×4 (02:17→20:08)
[2019-03-20] MEDS: DEXTROSE 5%-WATER 1,000 ML IV SCH (03:31)
[2019-03-20] MEDS: INSULIN LISPRO 100 UNITS/ML SQ PRN ×3 (06:26→17:08)
[2019-03-20 06:33] LABS: GLUCOMETER DEV NAME(LOC) 5N.1; GLUCOSE,POINT OF CARE 356 MG/DL (70-110)
[2019-03-20 07:35] LABS: ALBUMIN 1.8 g/dL (3.4-5.0); BILIRUBIN,TOTAL 0.5 mg/dL (0.1-1.0); CALCIUM, TOTAL 7.6 mg/dL (8.8-10.5); CREATININE 1.17 mg/dL (0.60-1.30); POTASSIUM 3.5 mmol/L (3.5-5.1); TOTAL PROTEIN, SERUM 4.9 g/dL (6.4-8.2)
[2019-03-20] MEDS: PANTOPRAZOLE SODIUM 40 MG/VIAL IVP SCH ×2 (08:52→21:39)
[2019-03-20] MEDS: ASPIRIN 81 MG CHEWABLE TABLET PO SCH (09:00)
[2019-03-20] MEDS: MULTIVITAMINS, THERAPEUTIC 15 ML UDCUP PO SCH (09:00)
[2019-03-20] MEDS: METOPROLOL SUCCINATE 50 MG ER TABLET PO SCH ×2 (09:00→21:00)
[2019-03-20 09:20] LABS: BASOPHILS % (AUTO) 0.1 % (0.0-2.0); EOSINOPHILS % (AUTO) 0 % (1.0-6.0); HEMATOCRIT 26.7 % (36-46); HEMOGLOBIN 9.4 g/dL (12.0-16.0); LYMPHOCYTES # (AUTO) 0.5 K/uL (1.0-4.8); LYMPHOCYTES % (AUTO) 2.4 % (22.0-44.0); MEAN CORPUSCULAR HEMOGLOBIN 30.4 pg (26.0-34.0); MEAN CORPUSCULAR HGB CONC 35.2 G/dL (31.0-37.0); MEAN CORPUSCULAR VOLUME 86 fL (80-100); MONOCYTES # (AUTO) 0.3 K/uL (0.1-1.0); MONOCYTES % (AUTO) 1.7 % (2.0-9.0); NEUTROPHILS # (AUTO) 19.8 K/uL (1.8-7.7); PLATELET COUNT (AUTO) 285 K/uL (150-450); RED BLOOD CELL COUNT(AUTO) 3.09 MIL/uL (4.00-5.20); RED CELL DISTRIBUTION WIDTH 15.3 % (11.5-14.5)
[2019-03-20 09:21] LABS: NEUTROPHILS % (AUTO) 95.8 % (40.0-70.0)
[2019-03-20] MEDS ORDERED: NOREPINEPHRINE 4 MG/D5%-WATER 250 ML IV PRN (10:11)
[2019-03-20 10:18] LABS: ABG A-A DIFF O2 622.1 mmHg (10-20.0); ABG BASE EXCESS -3.3 mmol/L (-2.0-3.0); ABG CARBOXYHEMOGLOBIN 1.4 % (0.0-1.5); ABG HCO3 21.9 mmol/L (22.0-26.0); ABG METHEMOGLOBIN 0.3 % (0.0-1.5); ABG OXYGEN CONTENT 11.2 mL/dL (15.0-23.0); ABG OXYGEN SATURATION 88.3 % (95.0-98.0); ABG OXYHEMOGLOBIN 86.8 % (94.0-100.0); ABG PCO2 37 mmHg (35-45); ABG TOTAL HEMOGLOBIN 9.1 G/dL (12.0-18.0); PO2, ARTERIAL BG 55.7 mmHg (75.0-83.0); SOURCE, BLOOD GAS ARTERIAL; TEMPERATURE, FAHRENHEIT, BG 97.6 FAHREN (96.0-98.6)
[2019-03-20 10:19] LABS: O2 DEVICE,BLOOD GAS BIPAP (ROOM AIR); SITE, BLOOD GAS LFT RADIAL
[2019-03-20 11:10] LABS: GLUCOMETER DEV NAME(LOC) 5N.2; GLUCOSE,POINT OF CARE 271 MG/DL (70-110)
[2019-03-20 11:11] LABS: GLUCOMETER DEV NAME(LOC) 5N.2; GLUCOSE,POINT OF CARE 307 MG/DL (70-110)
[2019-03-20 11:11] LABS: GLUCOMETER DEV NAME(LOC) 5N.2; GLUCOSE,POINT OF CARE 222 MG/DL (70-110)
[2019-03-20 11:11] LABS: GLUCOMETER DEV NAME(LOC) 5N.2; GLUCOSE,POINT OF CARE 355 MG/DL (70-110)
[2019-03-20] MEDS ORDERED: ROCURONIUM BROMIDE 10 MG/ML 5 ML VIAL IVP ONE (11:30)
[2019-03-20] MEDS ORDERED: MIDAZOLAM HCL 2 MG/2 ML VIAL IVP ONE (11:30)
[2019-03-20] MEDS ORDERED: SODIUM CHLORIDE 0.45% 1,000 ML IV ONE (11:59)
[2019-03-20] MEDS: SODIUM CHLORIDE 0.45% 1,000 ML IV SCH (12:00)
[2019-03-20] MEDS ORDERED: VASOPRESSIN 40 UNITS in DEXTROSE 5%-WATER 98 ML IV PRN (12:00)
[2019-03-20 12:13] LABS: ABG A-A DIFF O2 612.8 mmHg (10-20.0); ABG BASE EXCESS -5.9 mmol/L (-2.0-3.0); ABG CARBOXYHEMOGLOBIN 1.3 % (0.0-1.5); ABG HCO3 19.6 mmol/L (22.0-26.0); ABG METHEMOGLOBIN 0.3 % (0.0-1.5); ABG OXYGEN CONTENT 13.9 mL/dL (15.0-23.0); ABG OXYGEN SATURATION 88.8 % (95.0-98.0); ABG OXYHEMOGLOBIN 87.4 % (94.0-100.0); ABG PCO2 42 mmHg (35-45); ABG PH 7.304 (7.35-7.450); ABG TOTAL HEMOGLOBIN 11.3 G/dL (12.0-18.0); O2 DEVICE,BLOOD GAS VENTILATOR (ROOM AIR); PEEP,BG 5 cm H2O; PO2, ARTERIAL BG 59.8 mmHg (75.0-83.0); SITE, BLOOD GAS LFT FEMORAL; SOURCE, BLOOD GAS ARTERIAL; TEMPERATURE, FAHRENHEIT, BG 97.6 FAHREN (96.0-98.6); VT, ABG 430 ml
[2019-03-20 12:59] LABS: MAGNESIUM 2.9 mg/dL (1.80-2.40); PHOSPHORUS 3.3 mg/dL (2.5-4.9)
[2019-03-20] MEDS ORDERED: SODIUM CHLORIDE 0.9% 250 ML IV ONE (13:09)
[2019-03-20] MEDS: POTASSIUM CHL 10 MEQ/WATER 50 ML IV PRN ×6 (13:20→19:16)
[2019-03-20 17:16] LABS: HEMATOCRIT 28.3 % (36-46); HEMOGLOBIN 9.5 g/dL (12.0-16.0)
[2019-03-20 17:26] LABS: CALCIUM, TOTAL 7.5 mg/dL (8.8-10.5); CREATININE 1.32 mg/dL (0.60-1.30); POTASSIUM 3.5 mmol/L (3.5-5.1)
[2019-03-20] MEDS: PROPOFOL 1000 MG/ISO-OSM 100 ML IV PRN (20:08)
[2019-03-20 23:58] LABS: GLUCOSE,POINT OF CARE 161 MG/DL (70-110)
[2019-03-20 23:58] LABS: GLUCOSE,POINT OF CARE 101 MG/DL (70-110)
[2019-03-21] VITALS: BP 98/39
[2019-03-21] MEDS: PIPERACILLIN SODIUM/TAZOBACTAM 2.25 GM in DEXTROSE 5%-WATER 50 ML IV SCH ×4 (02:27→20:27)
[2019-03-21 04:00] VITALS: BP 103/38
[2019-03-21 05:15] LABS: GLUCOSE,POINT OF CARE 74 MG/DL (70-110)
[2019-03-21 05:32] LABS: EOSINOPHILS % (AUTO) 0 % (1.0-6.0); HEMATOCRIT 23.9 % (36-46); HEMOGLOBIN 8.1 g/dL (12.0-16.0); LYMPHOCYTES # (AUTO) 0.7 K/uL (1.0-4.8); LYMPHOCYTES % (AUTO) 4.3 % (22.0-44.0); MEAN CORPUSCULAR VOLUME 88 fL (80-100); MONOCYTES # (AUTO) 0.3 K/uL (0.1-1.0); MONOCYTES % (AUTO) 1.7 % (2.0-9.0); NEUTROPHILS # (AUTO) 16.4 K/uL (1.8-7.7); PLATELET COUNT (AUTO) 190 K/uL (150-450); RED BLOOD CELL COUNT(AUTO) 2.71 MIL/uL (4.00-5.20); RED CELL DISTRIBUTION WIDTH 15.7 % (11.5-14.5)
[2019-03-21] MEDS ORDERED: SODIUM CHLORIDE 0.9% 250 ML IV ONE (05:32)
[2019-03-21] MEDS: SODIUM CHLORIDE 0.45% 1,000 ML IV SCH (05:34)
[2019-03-21 05:41] LABS: ALBUMIN 1.3 g/dL (3.4-5.0); BILIRUBIN,TOTAL 0.7 mg/dL (0.1-1.0); CALCIUM, TOTAL 7.2 mg/dL (8.8-10.5); CREATININE 1.7 mg/dL (0.60-1.30); POTASSIUM 4.9 mmol/L (3.5-5.1)
[2019-03-21 08:00] VITALS: BP 104/52
[2019-03-21] MEDS: ASPIRIN 81 MG CHEWABLE TABLET PO SCH (09:00)
[2019-03-21] MEDS: METOPROLOL SUCCINATE 50 MG ER TABLET PO SCH ×2 (09:00→20:27)
[2019-03-21 09:02] LABS: GLUCOSE,POINT OF CARE 176 MG/DL (70-110)
[2019-03-21] MEDS: MULTIVITAMINS, THERAPEUTIC 15 ML UDCUP PO SCH (09:19)
[2019-03-21] MEDS: PANTOPRAZOLE SODIUM 40 MG/VIAL IVP SCH ×2 (09:20→20:27)
[2019-03-21 10:34] LABS: GLUCOSE,POINT OF CARE 150 MG/DL (70-110)
[2019-03-21 10:42] LABS: HEMATOCRIT 23.1 % (36-46); HEMOGLOBIN 8.2 g/dL (12.0-16.0)
[2019-03-21 11:21] LABS: LACTIC ACID 6.4 mmol/L (0.4-2.0)
[2019-03-21] MEDS: INSULIN LISPRO 100 UNITS/ML SQ PRN ×2 (11:38→18:37)
[2019-03-21 11:41] LABS: PHOSPHORUS 4.2 mg/dL (2.5-4.9)
[2019-03-21 12:00] VITALS: BP 104/51
[2019-03-21 13:14] LABS: ABG A-A DIFF O2 149.9 mmHg (10-20.0); ABG BASE EXCESS -8.3 mmol/L (-2.0-3.0); ABG HCO3 18.5 mmol/L (22.0-26.0); ABG METHEMOGLOBIN 0.2 % (0.0-1.5); ABG OXYGEN CONTENT 10.8 mL/dL (15.0-23.0); ABG OXYGEN SATURATION 95.9 % (95.0-98.0); ABG OXYHEMOGLOBIN 93.8 % (94.0-100.0); ABG PCO2 23 mmHg (35-45); ABG PH 7.451 (7.35-7.450); ABG TOTAL HEMOGLOBIN 8.1 G/dL (12.0-18.0); PO2, ARTERIAL BG 73.8 mmHg (75.0-83.0); SOURCE, BLOOD GAS ARTERIAL; TEMPERATURE, FAHRENHEIT, BG 96.7 FAHREN (96.0-98.6)
[2019-03-21 13:16] LABS: O2 DEVICE,BLOOD GAS VENT (ROOM AIR); SITE, BLOOD GAS LFT BRACHIAL
[2019-03-21 13:17] LABS: PEEP,BG 5 cm H2O; PRESSURE SUPPORT, BG 10 cm H2O; VENT MODE, BG CPAP (ROOM AIR)
[2019-03-21] MEDS ORDERED: SODIUM BICARBONATE 100 MEQ in DEXTROSE 5%-WATER 1,000 ML IV ONE (13:30)
[2019-03-21 14:01] LABS: GLUCOSE,POINT OF CARE 157 MG/DL (70-110)
[2019-03-21 16:00] VITALS: BP 120/33
[2019-03-21] MEDS ORDERED: DOPamine HCL/D5W 400 MG/250 ML IV BAG IV ONE (18:16)
[2019-03-21 18:53] LABS: SPONTANEOUS VT, BG 419 ml
[2019-03-21 20:00] VITALS: BP 140/62
[2019-03-22] VITALS: BP 139/54
[2019-03-22] MEDS: INSULIN LISPRO 100 UNITS/ML SQ PRN ×2 (00:03→06:34)
[2019-03-22] MEDS: PIPERACILLIN SODIUM/TAZOBACTAM 2.25 GM in DEXTROSE 5%-WATER 50 ML IV SCH ×4 (01:49→21:06)
[2019-03-22 01:50] LABS: GLUCOSE,POINT OF CARE 275 MG/DL (70-110)
[2019-03-22 01:50] LABS: GLUCOSE,POINT OF CARE 170 MG/DL (70-110)
[2019-03-22 04:00] VITALS: BP 118/55
[2019-03-22] MEDS ORDERED: SODIUM CHLORIDE 0.9% 250 ML IV ONE (05:16)
[2019-03-22 05:33] LABS: HEMOGLOBIN 9.2 g/dL (12.0-16.0)
[2019-03-22 05:52] LABS: ALANINE AMINOTRANSFERASE 314 U/L (12-78); ALBUMIN 1.5 g/dL (3.4-5.0); ALKALINE PHOSPHATASE 90 U/L (46-116); ANION GAP 12 mmol/L (8-16); ASPARTATE AMINOTRANSFERASE 460 U/L (15-37); BILIRUBIN,TOTAL 0.7 mg/dL (0.1-1.0); CALCIUM, TOTAL 7.4 mg/dL (8.8-10.5); CARBON DIOXIDE 22 mmol/L (22-29); CHLORIDE 105 mmol/L (98-107); CREATININE 2.04 mg/dL (0.60-1.30); GLOMERULAR FILTR. RATE CALC 24 mL/min (>60); GLUCOSE,RANDOM 314 mg/dL (70-110); POTASSIUM 4.4 mmol/L (3.5-5.1); SODIUM SERUM 139 mmol/L (136-145); TOTAL PROTEIN, SERUM 4.8 g/dL (6.4-8.2); UREA NITROGEN, BLOOD 52 mg/dL (7-18)
[2019-03-22 06:39] LABS: LACTIC ACID 3.6 mmol/L (0.4-2.0)
[2019-03-22] MEDS ORDERED: DEXTROSE 50%-WATER 25 GM/50 ML SYRINGE IVP PRN (06:45)
[2019-03-22 08:00] VITALS: BP 94/35
[2019-03-22 08:28] LABS: ABG A-A DIFF O2 93.3 mmHg (10-20.0); ABG BASE EXCESS -3.3 mmol/L (-2.0-3.0); ABG CARBOXYHEMOGLOBIN 1.8 % (0.0-1.5); ABG HCO3 22.3 mmol/L (22.0-26.0); ABG METHEMOGLOBIN 0.2 % (0.0-1.5); ABG OXYGEN CONTENT 11.4 mL/dL (15.0-23.0); ABG OXYGEN SATURATION 98.7 % (95.0-98.0); ABG OXYHEMOGLOBIN 96.7 % (94.0-100.0); ABG PCO2 27 mmHg (35-45); ABG PH 7.488 (7.35-7.450); ABG TOTAL HEMOGLOBIN 8.2 G/dL (12.0-18.0); PO2, ARTERIAL BG 124.7 mmHg (75.0-83.0); SOURCE, BLOOD GAS ARTERIAL; TEMPERATURE, FAHRENHEIT, BG 98.6 FAHREN (96.0-98.6)
[2019-03-22 08:30] LABS: O2 DEVICE,BLOOD GAS VENTILATOR (ROOM AIR); SITE, BLOOD GAS RT RADIAL
[2019-03-22 08:31] LABS: PEEP,BG 5 cm H2O; VT, ABG 430 ml
[2019-03-22 08:40] LABS: GLUCOSE,POINT OF CARE 278 MG/DL (70-110)
[2019-03-22] MEDS: ASPIRIN 81 MG CHEWABLE TABLET PO SCH (08:50)
[2019-03-22] MEDS: MULTIVITAMINS, THERAPEUTIC 15 ML UDCUP PO SCH (08:50)
[2019-03-22] MEDS: METOPROLOL SUCCINATE 50 MG ER TABLET PO SCH ×2 (08:50→21:00)
[2019-03-22] MEDS: PANTOPRAZOLE SODIUM 40 MG/VIAL IVP SCH ×2 (08:51→21:06)
[2019-03-22 09:11] LABS: BASOPHILS % (AUTO) 0.1 % (0.0-2.0); EOSINOPHILS % (AUTO) 0 % (1.0-6.0); HEMATOCRIT 26.3 % (36-46); HEMOGLOBIN 9.1 g/dL (12.0-16.0); LYMPHOCYTES # (AUTO) 0.5 K/uL (1.0-4.8); LYMPHOCYTES % (AUTO) 2.6 % (22.0-44.0); MEAN CORPUSCULAR HEMOGLOBIN 30.1 pg (26.0-34.0); MEAN CORPUSCULAR HGB CONC 34.4 G/dL (31.0-37.0); MEAN CORPUSCULAR VOLUME 87 fL (80-100); MONOCYTES # (AUTO) 0.2 K/uL (0.1-1.0); MONOCYTES % (AUTO) 1.1 % (2.0-9.0); NEUTROPHILS # (AUTO) 19.2 K/uL (1.8-7.7); PLATELET COUNT (AUTO) 188 K/uL (150-450); RED BLOOD CELL COUNT(AUTO) 3.01 MIL/uL (4.00-5.20); RED CELL DISTRIBUTION WIDTH 16.2 % (11.5-14.5)
[2019-03-22 09:13] LABS: NEUTROPHILS % (AUTO) 96.2 % (40.0-70.0)
[2019-03-22 12:00] VITALS: BP 99/38
[2019-03-22] MEDS: INSULIN REGULAR, HUMAN 100 UNITS/ML SQ PRN ×2 (12:23→17:48)
[2019-03-22] MEDS: SODIUM BICARBONATE 100 MEQ in DEXTROSE 5%-WATER 1,000 ML IV SCH (12:26)
[2019-03-22 13:53] LABS: GLUCOSE,POINT OF CARE 337 MG/DL (70-110)
[2019-03-22 16:00] VITALS: BP 95/42
[2019-03-22] MEDS: VANCOMYCIN HCL 125 MG/2.5 ML SOLUTION ORAL.SYG PO SCH (17:47)
[2019-03-22 20:00] VITALS: BP 94/38
[2019-03-22] MEDS: ACETYLCYSTEINE 10% 100 MG/ML 4 ML NEB SOLUTION NEB SCH (20:18)
[2019-03-22] MEDS: ALBUTEROL SULFATE 2.5 MG/0.5 ML NEB SOLUTION NEB PRN (20:19)
[2019-03-22 21:17] LABS: C.DIFF GDH ANTIGEN, Stool Negative (Negative); C.DIFF TOXINS A&B, Stool Negative (Negative)
[2019-03-22 23:19] LABS: GLUCOSE,POINT OF CARE 256 MG/DL (70-110)
[2019-03-23] VITALS (18 sets, daily range): BP systolic 92–146; BP diastolic 34–70
[2019-03-23] MEDS ORDERED: HEPARIN SODIUM,PORCINE 5,000 UNITS/ML VIAL ONE (00:31)
[2019-03-23] MEDS: INSULIN REGULAR, HUMAN 100 UNITS/ML SQ PRN ×4 (00:37→18:09)
[2019-03-23] MEDS: VANCOMYCIN HCL 125 MG/2.5 ML SOLUTION ORAL.SYG PO SCH ×5 (00:41→23:49)
[2019-03-23 00:44] LABS: GLUCOSE,POINT OF CARE 240 MG/DL (70-110)
[2019-03-23] MEDS: ACETYLCYSTEINE 10% 100 MG/ML 4 ML NEB SOLUTION NEB SCH ×4 (01:45→20:41)
[2019-03-23] MEDS: ALBUTEROL SULFATE 2.5 MG/0.5 ML NEB SOLUTION NEB PRN ×4 (01:45→20:41)
[2019-03-23] MEDS: PIPERACILLIN SODIUM/TAZOBACTAM 2.25 GM in DEXTROSE 5%-WATER 50 ML IV SCH ×2 (02:37→07:23)
[2019-03-23 05:12] LABS: EOSINOPHILS % (AUTO) 0.1 % (1.0-6.0); LYMPHOCYTES # (AUTO) 0.6 K/uL (1.0-4.8); MEAN CORPUSCULAR HEMOGLOBIN 29.4 pg (26.0-34.0); MEAN CORPUSCULAR HGB CONC 34.2 G/dL (31.0-37.0); MEAN CORPUSCULAR VOLUME 86 fL (80-100); MONOCYTES # (AUTO) 0.3 K/uL (0.1-1.0); MONOCYTES % (AUTO) 1.8 % (2.0-9.0); PLATELET COUNT (AUTO) 134 K/uL (150-450); RED BLOOD CELL COUNT(AUTO) 2.22 MIL/uL (4.00-5.20); RED CELL DISTRIBUTION WIDTH 15.8 % (11.5-14.5)
[2019-03-23 05:27] LABS: ALBUMIN 1.1 g/dL (3.4-5.0); BILIRUBIN,TOTAL 0.5 mg/dL (0.1-1.0); CALCIUM, TOTAL 6.9 mg/dL (8.8-10.5); CREATININE 2.42 mg/dL (0.60-1.30); POTASSIUM 3.6 mmol/L (3.5-5.1)
[2019-03-23 06:02] LABS: NEUTROPHILS % (AUTO) 94.1 % (40.0-70.0)
[2019-03-23 06:03] LABS: HEMOGLOBIN 6.5 g/dL (12.0-16.0)
[2019-03-23 06:04] LABS: HEMATOCRIT 19.2 % (36-46)
[2019-03-23] MEDS: PANTOPRAZOLE SODIUM 40 MG/VIAL IVP SCH (07:24)
[2019-03-23] MEDS: MULTIVITAMINS, THERAPEUTIC 15 ML UDCUP PO SCH (07:24)
[2019-03-23] MEDS: ASPIRIN 81 MG CHEWABLE TABLET PO SCH (07:24)
[2019-03-23] MEDS: METOPROLOL SUCCINATE 50 MG ER TABLET PO SCH ×2 (07:25→21:00)
[2019-03-23 08:15] LABS: GLUCOSE,POINT OF CARE 280 MG/DL (70-110)
[2019-03-23] MEDS: IPRATROPIUM BROMIDE 0.5 MG/2.5 ML NEB SOLUTION NEB PRN ×2 (08:46→14:17)
[2019-03-23 09:40] LABS: HEMATOCRIT 17.9 % (36-46); HEMOGLOBIN 6.3 g/dL (12.0-16.0)
[2019-03-23] MEDS: SODIUM BICARBONATE 100 MEQ in DEXTROSE 5%-WATER 1,000 ML IV SCH (10:54)
[2019-03-23 10:55] LABS: ABG A-A DIFF O2 105.4 mmHg (10-20.0); ABG BASE EXCESS 1.2 mmol/L (-2.0-3.0); ABG CARBOXYHEMOGLOBIN 2.4 % (0.0-1.5); ABG HCO3 25.5 mmol/L (22.0-26.0); ABG METHEMOGLOBIN 0.2 % (0.0-1.5); ABG OXYGEN CONTENT 8.4 mL/dL (15.0-23.0); ABG OXYHEMOGLOBIN 96.4 % (94.0-100.0); ABG PCO2 27 mmHg (35-45); ABG PH 7.557 (7.35-7.450); O2 DEVICE,BLOOD GAS VENTILATOR (ROOM AIR); SITE, BLOOD GAS LFT RADIAL; SOURCE, BLOOD GAS ARTERIAL; VT, ABG 430 ml
[2019-03-23 10:56] LABS: PEEP,BG 5 cm H2O
[2019-03-23] MEDS ORDERED: VANCOMYCIN HCL 1.25 GM in DEXTROSE 5%-WATER 250 ML IV ONE (11:00)
[2019-03-23] MEDS ORDERED: SODIUM CHLORIDE 0.9% 100 ML ONE (11:02)
[2019-03-23] MEDS ORDERED: PANTOPRAZOLE SODIUM 40 MG/VIAL IVP ONE (13:30)
[2019-03-23] MEDS ORDERED: PIPERACILLIN SODIUM/TAZOBACTAM 2.25 GM in DEXTROSE 5%-WATER 50 ML IV SCH (15:00)
[2019-03-23 15:22] LABS: GLUCOSE,POINT OF CARE 304 MG/DL (70-110)
[2019-03-23] MEDS: PANTOPRAZOLE SODIUM 80 MG in SODIUM CHLORIDE 0.9% 100 ML IV SCH ×2 (15:57→23:49)
[2019-03-23 20:20] LABS: INR 1.1 (0.9-1.1); PROTHROMBIN TIME 11.1 SEC (9.4-11.6)
[2019-03-23 20:42] LABS: HEMATOCRIT 31.7 % (36-46); HEMOGLOBIN 10.8 g/dL (12.0-16.0)
[2019-03-24] VITALS: BP 101/56
[2019-03-24] MEDS: INSULIN REGULAR, HUMAN 100 UNITS/ML SQ PRN ×4 (00:06→23:43)
[2019-03-24] MEDS: ACETYLCYSTEINE 10% 100 MG/ML 4 ML NEB SOLUTION NEB SCH ×4 (02:03→19:34)
[2019-03-24 02:24] LABS: HEMATOCRIT 30.6 % (36-46); HEMOGLOBIN 10.7 g/dL (12.0-16.0)
[2019-03-24 02:38] LABS: GLUCOSE,POINT OF CARE 280 MG/DL (70-110)
[2019-03-24 02:38] LABS: GLUCOSE,POINT OF CARE 279 MG/DL (70-110)
[2019-03-24 04:53] VITALS: BP 105/52
[2019-03-24 05:23] LABS: BASOPHILS % (AUTO) 0.1 % (0.0-2.0); EOSINOPHILS % (AUTO) 0.4 % (1.0-6.0); HEMOGLOBIN 11.1 g/dL (12.0-16.0); LYMPHOCYTES # (AUTO) 0.7 K/uL (1.0-4.8); LYMPHOCYTES % (AUTO) 6.4 % (22.0-44.0); MEAN CORPUSCULAR HEMOGLOBIN 29.2 pg (26.0-34.0); MEAN CORPUSCULAR HGB CONC 34.6 G/dL (31.0-37.0); MEAN CORPUSCULAR VOLUME 85 fL (80-100); MONOCYTES # (AUTO) 0.6 K/uL (0.1-1.0); MONOCYTES % (AUTO) 5.6 % (2.0-9.0); NEUTROPHILS # (AUTO) 9.7 K/uL (1.8-7.7); PLATELET COUNT (AUTO) 104 K/uL (150-450); RED BLOOD CELL COUNT(AUTO) 3.79 MIL/uL (4.00-5.20); RED CELL DISTRIBUTION WIDTH 16.7 % (11.5-14.5)
[2019-03-24 05:31] LABS: NEUTROPHILS % (AUTO) 87.5 % (40.0-70.0)
[2019-03-24 05:40] LABS: ALBUMIN 1.1 g/dL (3.4-5.0); BILIRUBIN,TOTAL 0.6 mg/dL (0.1-1.0); CALCIUM, TOTAL 7.1 mg/dL (8.8-10.5); CREATININE 2.58 mg/dL (0.60-1.30); POTASSIUM 3.6 mmol/L (3.5-5.1); TOTAL PROTEIN, SERUM 4.4 g/dL (6.4-8.2)
[2019-03-24] MEDS: VANCOMYCIN HCL 125 MG/2.5 ML SOLUTION ORAL.SYG PO SCH ×4 (06:19→23:48)
[2019-03-24] MEDS: ALBUTEROL SULFATE 2.5 MG/0.5 ML NEB SOLUTION NEB PRN ×3 (07:41→19:34)
[2019-03-24 08:00] VITALS: BP 115/76
[2019-03-24] MEDS ORDERED: FUROSEMIDE 40 MG/4 ML VIAL IVP ONE (08:00)
[2019-03-24] MEDS: MULTIVITAMINS, THERAPEUTIC 15 ML UDCUP PO SCH (08:18)
[2019-03-24] MEDS: ASPIRIN 81 MG CHEWABLE TABLET PO SCH (08:19)
[2019-03-24] MEDS: METOPROLOL SUCCINATE 50 MG ER TABLET PO SCH ×2 (09:00→21:00)
[2019-03-24] MEDS: PROPOFOL 1000 MG/ISO-OSM 100 ML IV PRN (09:07)
[2019-03-24 09:35] LABS: GLUCOSE,POINT OF CARE 201 MG/DL (70-110)
[2019-03-24] MEDS: PANTOPRAZOLE SODIUM 80 MG in SODIUM CHLORIDE 0.9% 100 ML IV SCH ×2 (09:39→19:41)
[2019-03-24 11:45] LABS: HEMATOCRIT 31.9 % (36-46); HEMOGLOBIN 11.1 g/dL (12.0-16.0)
[2019-03-24] MEDS ORDERED: SODIUM CHLORIDE 0.9% 0 ML ONE (11:58)
[2019-03-24 12:00] VITALS: BP 109/77
[2019-03-24 16:00] VITALS: BP 122/52
[2019-03-24 16:37] LABS: HEMATOCRIT 33.8 % (36-46); HEMOGLOBIN 11.4 g/dL (12.0-16.0)
[2019-03-24 20:00] VITALS: BP 121/49
[2019-03-24 20:11] LABS: GLUCOSE,POINT OF CARE 197 MG/DL (70-110)
[2019-03-24 22:10] LABS: HEMATOCRIT 30.8 % (36-46); HEMOGLOBIN 10.7 g/dL (12.0-16.0)
[2019-03-25] VITALS: BP 117/54
[2019-03-25] MEDS: ALBUTEROL SULFATE 2.5 MG/0.5 ML NEB SOLUTION NEB PRN ×3 (01:03→19:59)
[2019-03-25] MEDS: ACETYLCYSTEINE 10% 100 MG/ML 4 ML NEB SOLUTION NEB SCH ×3 (01:04→19:59)
[2019-03-25 04:00] VITALS: BP 117/54
[2019-03-25] MEDS: INSULIN REGULAR, HUMAN 100 UNITS/ML SQ PRN ×3 (05:10→18:28)
[2019-03-25] MEDS: PANTOPRAZOLE SODIUM 80 MG in SODIUM CHLORIDE 0.9% 100 ML IV SCH ×2 (06:03→15:08)
[2019-03-25] MEDS: VANCOMYCIN HCL 125 MG/2.5 ML SOLUTION ORAL.SYG PO SCH ×3 (06:03→18:28)
[2019-03-25] MEDS ORDERED: LIDOCAINE/PF 2% 5 ML VIAL IM ONE (06:03)
[2019-03-25] MEDS ORDERED: PROPOFOL 1% 20 ML VIAL IVP ONE (06:03)
[2019-03-25 06:04] LABS: GLUCOSE,POINT OF CARE 210 MG/DL (70-110)
[2019-03-25 06:49] LABS: BASOPHILS % (AUTO) 0.1 % (0.0-2.0); EOSINOPHILS % (AUTO) 0.4 % (1.0-6.0); HEMATOCRIT 32.2 % (36-46); HEMOGLOBIN 11.1 g/dL (12.0-16.0); LYMPHOCYTES # (AUTO) 0.4 K/uL (1.0-4.8); LYMPHOCYTES % (AUTO) 3.9 % (22.0-44.0); MEAN CORPUSCULAR HEMOGLOBIN 29.5 pg (26.0-34.0); MEAN CORPUSCULAR HGB CONC 34.5 G/dL (31.0-37.0); MEAN CORPUSCULAR VOLUME 85 fL (80-100); MONOCYTES # (AUTO) 0.9 K/uL (0.1-1.0); MONOCYTES % (AUTO) 8.1 % (2.0-9.0); NEUTROPHILS # (AUTO) 9.7 K/uL (1.8-7.7); PLATELET COUNT (AUTO) 111 K/uL (150-450); RED BLOOD CELL COUNT(AUTO) 3.77 MIL/uL (4.00-5.20); RED CELL DISTRIBUTION WIDTH 16.9 % (11.5-14.5)
[2019-03-25 06:52] LABS: NEUTROPHILS % (AUTO) 87.5 % (40.0-70.0)
[2019-03-25 07:08] LABS: CALCIUM, TOTAL 7.4 mg/dL (8.8-10.5); CREATININE 2.88 mg/dL (0.60-1.30); POTASSIUM 3.9 mmol/L (3.5-5.1); VANCOMYCIN,RANDOM 17.8 mcg/mL (25.0-50.0)
[2019-03-25 07:50] LABS: GLUCOSE,POINT OF CARE 217 MG/DL (70-110)
[2019-03-25 08:00] VITALS: BP 114/57
[2019-03-25] MEDS: MULTIVITAMINS, THERAPEUTIC 15 ML UDCUP PO SCH (08:55)
[2019-03-25] MEDS: FUROSEMIDE 40 MG/4 ML VIAL IVP SCH (08:55)
[2019-03-25] MEDS: VANCOMYCIN HCL 1 GM/D5% WATER 200 ML IV SCH (08:56)
[2019-03-25] MEDS: METOPROLOL SUCCINATE 50 MG ER TABLET PO SCH (09:00)
[2019-03-25 12:00] VITALS: BP 135/62
[2019-03-25 15:56] LABS: GLUCOSE,POINT OF CARE 181 MG/DL (70-110)
[2019-03-25 16:00] VITALS: BP 131/64
[2019-03-25 16:31] LABS: ABG A-A DIFF O2 124.4 mmHg (10-20.0); ABG BASE EXCESS -1.4 mmol/L (-2.0-3.0); ABG HCO3 23.7 mmol/L (22.0-26.0); ABG METHEMOGLOBIN 0.3 % (0.0-1.5); ABG OXYGEN CONTENT 15.7 mL/dL (15.0-23.0); ABG OXYGEN SATURATION 96.8 % (95.0-98.0); ABG OXYHEMOGLOBIN 95.5 % (94.0-100.0); ABG PCO2 35 mmHg (35-45); ABG PH 7.433 (7.35-7.450); ABG TOTAL HEMOGLOBIN 11.6 G/dL (12.0-18.0); PO2, ARTERIAL BG 84.5 mmHg (75.0-83.0); SOURCE, BLOOD GAS ARTERIAL; TEMPERATURE, FAHRENHEIT, BG 98.6 FAHREN (96.0-98.6)
[2019-03-25 16:32] LABS: CPAP, BG 5 cm H2O; O2 DEVICE,BLOOD GAS VENTILATOR (ROOM AIR); PRESSURE SUPPORT, BG 8 cm H2O; SITE, BLOOD GAS RT BRACHIAL; VENT MODE, BG SPONTANEOUS (ROOM AIR)
[2019-03-25 18:46] LABS: GLUCOSE,POINT OF CARE 181 MG/DL (70-110)
[2019-03-25 20:00] VITALS: BP 158/77
[2019-03-25] MEDS ORDERED: SODIUM CHLORIDE 0.9% 250 ML IV ONE (21:51)
[2019-03-26] VITALS (8 sets, daily range): BP systolic 121–161; BP diastolic 52–75
[2019-03-26] MEDS: VANCOMYCIN HCL 125 MG/2.5 ML SOLUTION ORAL.SYG PO SCH ×5 (00:14→23:55)
[2019-03-26] MEDS: HYDROCODONE/ACETAMINOPHEN 10-325 MG TABLET PO PRN ×2 (00:14→19:57)
[2019-03-26] MEDS: INSULIN REGULAR, HUMAN 100 UNITS/ML SQ PRN ×3 (00:18→23:57)
[2019-03-26] MEDS: PANTOPRAZOLE SODIUM 80 MG in SODIUM CHLORIDE 0.9% 100 ML IV SCH ×3 (00:53→23:54)
[2019-03-26 01:54] LABS: GLUCOSE,POINT OF CARE 193 MG/DL (70-110)
[2019-03-26] MEDS: ACETYLCYSTEINE 10% 100 MG/ML 4 ML NEB SOLUTION NEB SCH ×4 (02:33→20:26)
[2019-03-26] MEDS: ALBUTEROL SULFATE 2.5 MG/0.5 ML NEB SOLUTION NEB PRN ×4 (02:33→20:26)
[2019-03-26 05:28] LABS: GLUCOSE,POINT OF CARE 187 MG/DL (70-110)
[2019-03-26 06:07] LABS: EOSINOPHILS % (AUTO) 0.5 % (1.0-6.0); HEMATOCRIT 30.4 % (36-46); HEMOGLOBIN 10.5 g/dL (12.0-16.0); LYMPHOCYTES # (AUTO) 0.4 K/uL (1.0-4.8); LYMPHOCYTES % (AUTO) 4.1 % (22.0-44.0); MEAN CORPUSCULAR HEMOGLOBIN 29.5 pg (26.0-34.0); MEAN CORPUSCULAR HGB CONC 34.5 G/dL (31.0-37.0); MEAN CORPUSCULAR VOLUME 85 fL (80-100); MONOCYTES # (AUTO) 0.8 K/uL (0.1-1.0); MONOCYTES % (AUTO) 7.5 % (2.0-9.0); PLATELET COUNT (AUTO) 147 K/uL (150-450); RED BLOOD CELL COUNT(AUTO) 3.56 MIL/uL (4.00-5.20); RED CELL DISTRIBUTION WIDTH 16.7 % (11.5-14.5)
[2019-03-26 06:13] LABS: CALCIUM, TOTAL 7.4 mg/dL (8.8-10.5); CREATININE 2.97 mg/dL (0.60-1.30); MAGNESIUM 1.9 mg/dL (1.80-2.40); POTASSIUM 3.9 mmol/L (3.5-5.1)
[2019-03-26 06:17] LABS: NEUTROPHILS % (AUTO) 87.9 % (40.0-70.0)
[2019-03-26] MEDS: IPRATROPIUM BROMIDE 0.5 MG/2.5 ML NEB SOLUTION NEB PRN ×3 (08:44→20:26)
[2019-03-26] MEDS: FUROSEMIDE 40 MG/4 ML VIAL IVP SCH (09:00)
[2019-03-26] MEDS: MULTIVITAMINS, THERAPEUTIC 15 ML UDCUP PO SCH (09:00)
[2019-03-26 13:40] LABS: ABG A-A DIFF O2 122.2 mmHg (10-20.0); ABG BASE EXCESS -0.1 mmol/L (-2.0-3.0); ABG CARBOXYHEMOGLOBIN 0.6 % (0.0-1.5); ABG HCO3 24.6 mmol/L (22.0-26.0); ABG METHEMOGLOBIN 0.3 % (0.0-1.5); ABG OXYGEN CONTENT 15.9 mL/dL (15.0-23.0); ABG OXYGEN SATURATION 97.2 % (95.0-98.0); ABG OXYHEMOGLOBIN 96.3 % (94.0-100.0); ABG PCO2 37 mmHg (35-45); ABG PH 7.437 (7.35-7.450); ABG TOTAL HEMOGLOBIN 11.7 G/dL (12.0-18.0); PO2, ARTERIAL BG 85.5 mmHg (75.0-83.0); SOURCE, BLOOD GAS ARTERIAL; TEMPERATURE, FAHRENHEIT, BG 97.1 FAHREN (96.0-98.6)
[2019-03-26 13:41] LABS: SITE, BLOOD GAS RT RADIAL
[2019-03-26 13:42] LABS: CPAP, BG 0 cm H2O; O2 DEVICE,BLOOD GAS VENTILATOR (ROOM AIR); PRESSURE SUPPORT, BG 8 cm H2O; SPONTANEOUS VT, BG 436 ml; VENT MODE, BG SPONTANEOUS (ROOM AIR)
[2019-03-26] MEDS: METOPROLOL SUCCINATE 50 MG ER TABLET PO SCH (15:19)
[2019-03-26 18:21] LABS: GLUCOSE,POINT OF CARE 86 MG/DL (70-110)
[2019-03-27] VITALS: BP 168/74
[2019-03-27] MEDS: ACETYLCYSTEINE 10% 100 MG/ML 4 ML NEB SOLUTION NEB SCH ×4 (01:41→20:12)
[2019-03-27] MEDS: IPRATROPIUM BROMIDE 0.5 MG/2.5 ML NEB SOLUTION NEB PRN (01:41)
[2019-03-27] MEDS: ALBUTEROL SULFATE 2.5 MG/0.5 ML NEB SOLUTION NEB PRN ×4 (01:41→20:12)
[2019-03-27 04:00] VITALS: BP 115/54
[2019-03-27] MEDS: VANCOMYCIN HCL 125 MG/2.5 ML SOLUTION ORAL.SYG PO SCH ×4 (05:19→23:51)
[2019-03-27] MEDS: INSULIN REGULAR, HUMAN 100 UNITS/ML SQ PRN ×3 (05:19→18:51)
[2019-03-27 05:34] LABS: CALCIUM, TOTAL 7.7 mg/dL (8.8-10.5); CREATININE 3.16 mg/dL (0.60-1.30); MAGNESIUM 1.8 mg/dL (1.80-2.40)
[2019-03-27 05:35] LABS: INR 1.1 (0.9-1.1); PROTHROMBIN TIME 10.7 SEC (9.4-11.6)
[2019-03-27] MEDS ORDERED: SODIUM CHLORIDE 0.9% 100 ML ONE (05:48)
[2019-03-27 06:21] LABS: GLUCOSE,POINT OF CARE 285 MG/DL (70-110)
[2019-03-27 06:21] LABS: GLUCOSE,POINT OF CARE 310 MG/DL (70-110)
[2019-03-27 06:21] LABS: GLUCOSE,POINT OF CARE 218 MG/DL (70-110)
[2019-03-27] MEDS: VANCOMYCIN HCL 1 GM/D5% WATER 200 ML IV SCH (07:47)
[2019-03-27] MEDS: FUROSEMIDE 40 MG/4 ML VIAL IVP SCH (07:56)
[2019-03-27] MEDS: METOPROLOL SUCCINATE 50 MG ER TABLET PO SCH (07:56)
[2019-03-27] MEDS: MULTIVITAMINS, THERAPEUTIC 15 ML UDCUP PO SCH (07:56)
[2019-03-27] MEDS: DOCUSATE SODIUM 100 MG CAPSULE PO PRN (07:57)
[2019-03-27 08:00] VITALS: BP 121/68
[2019-03-27] MEDS: PANTOPRAZOLE SODIUM 80 MG in SODIUM CHLORIDE 0.9% 100 ML IV SCH ×2 (09:08→18:40)
[2019-03-27 12:00] VITALS: BP 131/59
[2019-03-27 14:04] LABS: GLUCOSE,POINT OF CARE 216 MG/DL (70-110)
[2019-03-27] MEDS: ALBUMIN HUMAN 25%-25GM/100ML 100 ML IV SCH ×2 (15:16→18:53)
[2019-03-27 16:00] VITALS: BP 121/54
[2019-03-27 18:56] LABS: GLUCOSE,POINT OF CARE 282 MG/DL (70-110)
[2019-03-27 20:00] VITALS: BP 128/60
[2019-03-28] VITALS (7 sets, daily range): BP systolic 121–145; BP diastolic 56–79
[2019-03-28] MEDS: INSULIN REGULAR, HUMAN 100 UNITS/ML SQ PRN ×5 (00:31→23:58)
[2019-03-28] MEDS: ACETYLCYSTEINE 10% 100 MG/ML 4 ML NEB SOLUTION NEB SCH ×3 (01:51→21:09)
[2019-03-28] MEDS: ALBUMIN HUMAN 25%-25GM/100ML 100 ML IV SCH ×4 (02:54→20:08)
[2019-03-28 03:27] LABS: GLUCOSE,POINT OF CARE 199 MG/DL (70-110)
[2019-03-28] MEDS: PANTOPRAZOLE SODIUM 80 MG in SODIUM CHLORIDE 0.9% 100 ML IV SCH ×2 (04:19→12:48)
[2019-03-28 05:22] LABS: BASOPHILS % (AUTO) 0.1 % (0.0-2.0); EOSINOPHILS % (AUTO) 0.8 % (1.0-6.0); HEMOGLOBIN 8.4 g/dL (12.0-16.0); LYMPHOCYTES # (AUTO) 0.3 K/uL (1.0-4.8); LYMPHOCYTES % (AUTO) 3.5 % (22.0-44.0); MEAN CORPUSCULAR HEMOGLOBIN 30.1 pg (26.0-34.0); MEAN CORPUSCULAR HGB CONC 34.9 G/dL (31.0-37.0); MEAN CORPUSCULAR VOLUME 86 fL (80-100); MONOCYTES # (AUTO) 0.3 K/uL (0.1-1.0); NEUTROPHILS # (AUTO) 7.9 K/uL (1.8-7.7); PLATELET COUNT (AUTO) 239 K/uL (150-450); RED BLOOD CELL COUNT(AUTO) 2.79 MIL/uL (4.00-5.20)
[2019-03-28 05:33] LABS: BILIRUBIN,TOTAL 0.6 mg/dL (0.1-1.0); CALCIUM, TOTAL 8.1 mg/dL (8.8-10.5); CREATININE 3.12 mg/dL (0.60-1.30); MAGNESIUM 1.9 mg/dL (1.80-2.40); PHOSPHORUS 6.1 mg/dL (2.5-4.9); POTASSIUM 3.9 mmol/L (3.5-5.1); TOTAL PROTEIN, SERUM 5.7 g/dL (6.4-8.2)
[2019-03-28 05:36] LABS: NEUTROPHILS % (AUTO) 91.6 % (40.0-70.0)
[2019-03-28] MEDS: VANCOMYCIN HCL 125 MG/2.5 ML SOLUTION ORAL.SYG PO SCH ×4 (05:42→23:56)
[2019-03-28 07:13] LABS: GLUCOSE,POINT OF CARE 208 MG/DL (70-110)
[2019-03-28 07:26] LABS: SODIUM,URINE RANDOM 84 mmol/l (20-110); UREA NITROGEN,URINE RANDOM 169 mg/dL (350-1000)
[2019-03-28] MEDS: ALBUTEROL SULFATE 2.5 MG/0.5 ML NEB SOLUTION NEB PRN ×2 (07:30→21:08)
[2019-03-28 07:38] LABS: CREATININE,URINE RANDOM < 5.0 mg/dL (30.0-125.0)
[2019-03-28] MEDS: MULTIVITAMINS, THERAPEUTIC 15 ML UDCUP PO SCH (09:38)
[2019-03-28] MEDS: METOPROLOL SUCCINATE 50 MG ER TABLET PO SCH (09:38)
[2019-03-28] MEDS: DOCUSATE SODIUM 100 MG CAPSULE PO PRN (09:38)
[2019-03-28] MEDS ORDERED: SODIUM CHLORIDE 0.9% 500 ML IV ONE (09:43)
[2019-03-28 18:40] LABS: GLUCOMETER DEV NAME(LOC) 5N.1; GLUCOSE,POINT OF CARE 228 MG/DL (70-110)
[2019-03-28 20:29] LABS: GLUCOMETER DEV NAME(LOC) 5S.2A; GLUCOSE,POINT OF CARE 184 MG/DL (70-110)
[2019-03-28] MEDS: IPRATROPIUM BROMIDE 0.5 MG/2.5 ML NEB SOLUTION NEB PRN (21:08)
[2019-03-29] VITALS (7 sets, daily range): BP systolic 110–156; BP diastolic 46–75
[2019-03-29] MEDS: PANTOPRAZOLE SODIUM 80 MG in SODIUM CHLORIDE 0.9% 100 ML IV SCH ×3 (00:35→20:36)
[2019-03-29 01:13] LABS: GLUCOMETER DEV NAME(LOC) 5N.1; GLUCOSE,POINT OF CARE 149 MG/DL (70-110)
[2019-03-29] MEDS: ALBUMIN HUMAN 25%-25GM/100ML 100 ML IV SCH ×2 (01:32→10:15)
[2019-03-29] MEDS: ALBUTEROL SULFATE 2.5 MG/0.5 ML NEB SOLUTION NEB PRN ×4 (02:09→19:51)
[2019-03-29] MEDS: ACETYLCYSTEINE 10% 100 MG/ML 4 ML NEB SOLUTION NEB SCH ×4 (02:09→19:50)
[2019-03-29] MEDS: IPRATROPIUM BROMIDE 0.5 MG/2.5 ML NEB SOLUTION NEB PRN ×3 (02:09→15:46)
[2019-03-29] MEDS: VANCOMYCIN HCL 125 MG/2.5 ML SOLUTION ORAL.SYG PO SCH ×3 (05:15→17:34)
[2019-03-29] MEDS: INSULIN REGULAR, HUMAN 100 UNITS/ML SQ PRN ×3 (06:09→17:36)
[2019-03-29 06:17] LABS: BASOPHILS % (AUTO) 0.2 % (0.0-2.0); EOSINOPHILS % (AUTO) 0.6 % (1.0-6.0); HEMATOCRIT 24.5 % (36-46); HEMOGLOBIN 8.4 g/dL (12.0-16.0); LYMPHOCYTES # (AUTO) 0.3 K/uL (1.0-4.8); LYMPHOCYTES % (AUTO) 3.9 % (22.0-44.0); MEAN CORPUSCULAR HEMOGLOBIN 29.7 pg (26.0-34.0); MEAN CORPUSCULAR HGB CONC 34.4 G/dL (31.0-37.0); MEAN CORPUSCULAR VOLUME 86 fL (80-100); MONOCYTES # (AUTO) 0.3 K/uL (0.1-1.0); MONOCYTES % (AUTO) 3.5 % (2.0-9.0); NEUTROPHILS # (AUTO) 7.6 K/uL (1.8-7.7); PLATELET COUNT (AUTO) 271 K/uL (150-450); RED BLOOD CELL COUNT(AUTO) 2.84 MIL/uL (4.00-5.20); RED CELL DISTRIBUTION WIDTH 17.3 % (11.5-14.5)
[2019-03-29 06:32] LABS: NEUTROPHILS % (AUTO) 91.8 % (40.0-70.0)
[2019-03-29 07:01] LABS: ALBUMIN 3.6 g/dL (3.4-5.0); BILIRUBIN,TOTAL 0.8 mg/dL (0.1-1.0); CALCIUM, TOTAL 8.4 mg/dL (8.8-10.5); CREATININE 2.94 mg/dL (0.60-1.30); MAGNESIUM 1.8 mg/dL (1.80-2.40); POTASSIUM 3.7 mmol/L (3.5-5.1); TOTAL PROTEIN, SERUM 6.1 g/dL (6.4-8.2)
[2019-03-29] MEDS ORDERED: VANCOMYCIN HCL 1 GM/D5% WATER 200 ML IV PRN (08:15)
[2019-03-29] MEDS: METOPROLOL SUCCINATE 50 MG ER TABLET PO SCH (10:13)
[2019-03-29] MEDS: MULTIVITAMINS, THERAPEUTIC 15 ML UDCUP PO SCH (10:14)
[2019-03-29 13:17] LABS: ABG A-A DIFF O2 576.8 mmHg (10-20.0); ABG BASE EXCESS 2.4 mmol/L (-2.0-3.0); ABG CARBOXYHEMOGLOBIN 0.6 % (0.0-1.5); ABG HCO3 26.4 mmol/L (22.0-26.0); ABG METHEMOGLOBIN 0.3 % (0.0-1.5); ABG OXYGEN CONTENT 13.4 mL/dL (15.0-23.0); ABG OXYGEN SATURATION 97.4 % (95.0-98.0); ABG OXYHEMOGLOBIN 96.5 % (94.0-100.0); ABG PCO2 41 mmHg (35-45); ABG TOTAL HEMOGLOBIN 9.8 G/dL (12.0-18.0); PO2, ARTERIAL BG 95.3 mmHg (75.0-83.0); SOURCE, BLOOD GAS ARTERIAL; TEMPERATURE, FAHRENHEIT, BG 98.4 FAHREN (96.0-98.6)
[2019-03-29] MEDS ORDERED: PROPOFOL 1000 MG/ISO-OSM 100 ML IV PRN (15:51)
[2019-03-29] MEDS: PIPERACILLIN SODIUM/TAZOBACTAM 2.25 GM in DEXTROSE 5%-WATER 50 ML IV SCH ×2 (15:58→22:20)
[2019-03-29] MEDS ORDERED: SODIUM CHLORIDE 0.9% 250 ML IV ONE (15:59)
[2019-03-29 16:03] LABS: GLUCOSE,POINT OF CARE 197 MG/DL (70-110)
[2019-03-29] MEDS ORDERED: 0.9% SODIUM CHLORIDE 10 ML SYRINGE IVP ONE (16:43)
[2019-03-29] MEDS ORDERED: SODIUM BICARBONATE [PEDIATRIC] 8.4% 10 MEQ/10 ML SYRINGE IVP ONE (16:43)
[2019-03-29] MEDS ORDERED: ETOMIDATE 2 MG/ML 10 ML VIAL ONE (17:00)
[2019-03-29 17:35] LABS: SITE, BLOOD GAS LFT RADIAL
[2019-03-29 17:36] LABS: O2 DEVICE,BLOOD GAS VENTILATOR (ROOM AIR); PEEP,BG 5 cm H2O; SPONTANEOUS VT, BG 423 ml; VT, ABG 450 ml
[2019-03-29] MEDS: HYDROCODONE/ACETAMINOPHEN 10-325 MG TABLET PO PRN (20:24)
[2019-03-29] MEDS ORDERED: SODIUM CHLORIDE 0.9% 100 ML ONE (20:48)
[2019-03-29 23:21] LABS: GLUCOMETER DEV NAME(LOC) 5N.1; GLUCOSE,POINT OF CARE 171 MG/DL (70-110)
[2019-03-29 23:22] LABS: GLUCOMETER DEV NAME(LOC) 5N.1; GLUCOSE,POINT OF CARE 222 MG/DL (70-110)
[2019-03-30] VITALS: BP 136/50
[2019-03-30] MEDS: VANCOMYCIN HCL 125 MG/2.5 ML SOLUTION ORAL.SYG PO SCH ×4 (00:35→17:12)
[2019-03-30] MEDS: INSULIN REGULAR, HUMAN 100 UNITS/ML SQ PRN ×2 (00:35→13:37)
[2019-03-30] MEDS: ACETYLCYSTEINE 10% 100 MG/ML 4 ML NEB SOLUTION NEB SCH ×4 (01:33→20:33)
[2019-03-30] MEDS: IPRATROPIUM BROMIDE 0.5 MG/2.5 ML NEB SOLUTION NEB PRN ×3 (01:33→15:55)
[2019-03-30] MEDS: ALBUTEROL SULFATE 2.5 MG/0.5 ML NEB SOLUTION NEB PRN ×4 (01:34→20:33)
[2019-03-30 04:00] VITALS: BP 113/50
[2019-03-30 05:06] LABS: BASOPHILS % (AUTO) 0.1 % (0.0-2.0); EOSINOPHILS % (AUTO) 0.1 % (1.0-6.0); HEMATOCRIT 24.1 % (36-46); HEMOGLOBIN 8.1 g/dL (12.0-16.0); LYMPHOCYTES # (AUTO) 0.3 K/uL (1.0-4.8); LYMPHOCYTES % (AUTO) 1.5 % (22.0-44.0); MEAN CORPUSCULAR HEMOGLOBIN 29.1 pg (26.0-34.0); MEAN CORPUSCULAR HGB CONC 33.6 G/dL (31.0-37.0); MEAN CORPUSCULAR VOLUME 87 fL (80-100); MONOCYTES # (AUTO) 0.4 K/uL (0.1-1.0); MONOCYTES % (AUTO) 2.1 % (2.0-9.0); NEUTROPHILS # (AUTO) 18.5 K/uL (1.8-7.7); PLATELET COUNT (AUTO) 279 K/uL (150-450); RED BLOOD CELL COUNT(AUTO) 2.79 MIL/uL (4.00-5.20); RED CELL DISTRIBUTION WIDTH 17.4 % (11.5-14.5)
[2019-03-30 05:09] LABS: NEUTROPHILS % (AUTO) 96.2 % (40.0-70.0)
[2019-03-30] MEDS: PIPERACILLIN SODIUM/TAZOBACTAM 2.25 GM in DEXTROSE 5%-WATER 50 ML IV SCH ×3 (05:37→21:31)
[2019-03-30 05:46] LABS: ALBUMIN 2.6 g/dL (3.4-5.0); BILIRUBIN,TOTAL 0.7 mg/dL (0.1-1.0); CALCIUM, TOTAL 8.1 mg/dL (8.8-10.5); CREATININE 2.67 mg/dL (0.60-1.30); POTASSIUM 3.1 mmol/L (3.5-5.1); TOTAL PROTEIN, SERUM 5.1 g/dL (6.4-8.2)
[2019-03-30] MEDS: POTASSIUM CHLORIDE 20 MEQ ER TABLET PO PRN (06:33)
[2019-03-30] MEDS: PANTOPRAZOLE SODIUM 80 MG in SODIUM CHLORIDE 0.9% 100 ML IV SCH ×2 (06:33→17:09)
[2019-03-30 06:56] LABS: GLUCOSE,POINT OF CARE 178 MG/DL (70-110)
[2019-03-30 06:57] LABS: GLUCOSE,POINT OF CARE 152 MG/DL (70-110)
[2019-03-30 06:57] LABS: GLUCOSE,POINT OF CARE 136 MG/DL (70-110)
[2019-03-30 08:00] VITALS: BP 130/52
[2019-03-30] MEDS: METOPROLOL SUCCINATE 50 MG ER TABLET PO SCH (08:47)
[2019-03-30] MEDS: MULTIVITAMINS, THERAPEUTIC 15 ML UDCUP PO SCH (08:47)
[2019-03-30 09:13] LABS: ABG A-A DIFF O2 286.1 mmHg (10-20.0); ABG BASE EXCESS 2.4 mmol/L (-2.0-3.0); ABG CARBOXYHEMOGLOBIN 0.5 % (0.0-1.5); ABG HCO3 26.7 mmol/L (22.0-26.0); ABG METHEMOGLOBIN 0.3 % (0.0-1.5); ABG OXYGEN CONTENT 12.7 mL/dL (15.0-23.0); ABG OXYGEN SATURATION 98.2 % (95.0-98.0); ABG OXYHEMOGLOBIN 97.4 % (94.0-100.0); ABG PCO2 34 mmHg (35-45); ABG PH 7.499 (7.35-7.450); ABG TOTAL HEMOGLOBIN 9.1 G/dL (12.0-18.0); PO2, ARTERIAL BG 105.6 mmHg (75.0-83.0); SOURCE, BLOOD GAS ARTERIAL; TEMPERATURE, FAHRENHEIT, BG 97.6 FAHREN (96.0-98.6)
[2019-03-30 09:23] LABS: O2 DEVICE,BLOOD GAS VENTILATOR (ROOM AIR); SITE, BLOOD GAS LFT RADIAL; VT, ABG 450 ml
[2019-03-30 09:24] LABS: PEEP,BG 8 cm H2O
[2019-03-30 09:27] LABS: SPONTANEOUS VT, BG 387 ml
[2019-03-30 12:00] VITALS: BP 130/55
[2019-03-30 16:00] VITALS: BP 123/46
[2019-03-30 20:00] VITALS: BP 137/67
[2019-03-30 21:59] LABS: GLUCOSE,POINT OF CARE 261 MG/DL (70-110)
[2019-03-30 21:59] LABS: GLUCOSE,POINT OF CARE 245 MG/DL (70-110)
[2019-03-30] MEDS ORDERED: SODIUM CHLORIDE 0.9% 250 ML IV ONE (23:38)
[2019-03-31] VITALS: BP 137/60
[2019-03-31] MEDS: PANTOPRAZOLE SODIUM 80 MG in SODIUM CHLORIDE 0.9% 100 ML IV SCH (00:25)
[2019-03-31] MEDS: VANCOMYCIN HCL 125 MG/2.5 ML SOLUTION ORAL.SYG PO SCH ×5 (00:26→23:55)
[2019-03-31 00:50] LABS: GLUCOSE,POINT OF CARE 360 MG/DL (70-110)
[2019-03-31] MEDS: INSULIN REGULAR, HUMAN 100 UNITS/ML SQ PRN ×5 (00:50→23:55)
[2019-03-31 01:38] LABS: APPEARANCE,URINE CLOUDY (CLEAR); BILIRUBIN,URINE NEGATIVE (NEGATIVE); GLUCOSE, URINE (UA) NEGATIVE (NEGATIVE); KETONES,URINE TRACE mg/dL (NEGATIVE); LEUKOCYTE ESTERASE ,URINE MODERATE (NEGATIVE); NITRATE,URINE NEGATIVE (NEGATIVE); OCCULT BLOOD,URINE NEGATIVE (NEGATIVE); PH,URINE 5.5 (5.0-8.0); PROTEIN,URINE POS 1+ (NEGATIVE); UROBILINOGEN,URINE 0.2 mg/dL (<=1.0)
[2019-03-31 01:46] LABS: BACTERIA,URINE None Seen /HPF (None Seen); RBC,URINE None Seen /HPF (0-2); SQUAMOUS EPITHELIAL CELL,UR Rare /LPF (None Seen); YEAST,URINE Many /HPF (None Seen)
[2019-03-31] MEDS: ALBUTEROL SULFATE 2.5 MG/0.5 ML NEB SOLUTION NEB PRN ×4 (02:00→20:23)
[2019-03-31] MEDS: ACETYLCYSTEINE 10% 100 MG/ML 4 ML NEB SOLUTION NEB SCH ×4 (02:01→20:23)
[2019-03-31 04:00] VITALS: BP 114/44
[2019-03-31] MEDS: PIPERACILLIN SODIUM/TAZOBACTAM 2.25 GM in DEXTROSE 5%-WATER 50 ML IV SCH ×3 (05:06→21:42)
[2019-03-31 06:30] LABS: GLUCOSE,POINT OF CARE 258 MG/DL (70-110)
[2019-03-31 06:40] LABS: BASOPHILS % (AUTO) 0.1 % (0.0-2.0); EOSINOPHILS % (AUTO) 0.2 % (1.0-6.0); HEMATOCRIT 24.7 % (36-46); HEMOGLOBIN 8.6 g/dL (12.0-16.0); LYMPHOCYTES # (AUTO) 0.3 K/uL (1.0-4.8); LYMPHOCYTES % (AUTO) 1.1 % (22.0-44.0); MEAN CORPUSCULAR HEMOGLOBIN 30.3 pg (26.0-34.0); MEAN CORPUSCULAR VOLUME 87 fL (80-100); MONOCYTES # (AUTO) 0.4 K/uL (0.1-1.0); NEUTROPHILS # (AUTO) 21.6 K/uL (1.8-7.7); PLATELET COUNT (AUTO) 308 K/uL (150-450); RED BLOOD CELL COUNT(AUTO) 2.85 MIL/uL (4.00-5.20); RED CELL DISTRIBUTION WIDTH 17.3 % (11.5-14.5)
[2019-03-31 06:43] LABS: NEUTROPHILS % (AUTO) 96.6 % (40.0-70.0)
[2019-03-31 07:05] LABS: CALCIUM, TOTAL 8.5 mg/dL (8.8-10.5); CREATININE 2.74 mg/dL (0.60-1.30); POTASSIUM 3.6 mmol/L (3.5-5.1); VANCOMYCIN,RANDOM 22.8 mcg/mL (25.0-50.0)
[2019-03-31] MEDS: IPRATROPIUM BROMIDE 0.5 MG/2.5 ML NEB SOLUTION NEB PRN ×2 (07:36→13:50)
[2019-03-31 08:00] VITALS: BP 151/63
[2019-03-31] MEDS: MULTIVITAMINS, THERAPEUTIC 15 ML UDCUP PO SCH (08:45)
[2019-03-31] MEDS: EPOETIN ALFA 10,000 UNITS/ML VIAL SQ SCH (08:46)
[2019-03-31] MEDS: METOPROLOL SUCCINATE 50 MG ER TABLET PO SCH (08:46)
[2019-03-31] MEDS: PANTOPRAZOLE SODIUM 40 MG/VIAL IVP SCH ×2 (10:20→21:23)
[2019-03-31 12:00] VITALS: BP 135/53
[2019-03-31 14:51] LABS: GLUCOSE,POINT OF CARE 209 MG/DL (70-110)
[2019-03-31 16:00] VITALS: BP 134/53
[2019-03-31 20:00] VITALS: BP 132/63
[2019-04-01] VITALS: BP 153/69
[2019-04-01] MEDS: ALBUTEROL SULFATE 2.5 MG/0.5 ML NEB SOLUTION NEB PRN ×2 (02:11→07:27)
[2019-04-01] MEDS: ACETYLCYSTEINE 10% 100 MG/ML 4 ML NEB SOLUTION NEB SCH ×4 (02:12→19:59)
[2019-04-01] MEDS ORDERED: SODIUM CHLORIDE 0.9% 250 ML IV ONE (02:28)
[2019-04-01 04:00] VITALS: BP 147/55
[2019-04-01 05:08] LABS: BASOPHILS % (AUTO) 0.2 % (0.0-2.0); EOSINOPHILS % (AUTO) 0.8 % (1.0-6.0); HEMOGLOBIN 8.2 g/dL (12.0-16.0); LYMPHOCYTES # (AUTO) 0.4 K/uL (1.0-4.8); LYMPHOCYTES % (AUTO) 3.4 % (22.0-44.0); MEAN CORPUSCULAR HEMOGLOBIN 28.7 pg (26.0-34.0); MEAN CORPUSCULAR HGB CONC 32.9 G/dL (31.0-37.0); MEAN CORPUSCULAR VOLUME 87 fL (80-100); MONOCYTES # (AUTO) 0.4 K/uL (0.1-1.0); MONOCYTES % (AUTO) 3.2 % (2.0-9.0); NEUTROPHILS # (AUTO) 12.2 K/uL (1.8-7.7); PLATELET COUNT (AUTO) 322 K/uL (150-450); RED BLOOD CELL COUNT(AUTO) 2.88 MIL/uL (4.00-5.20); RED CELL DISTRIBUTION WIDTH 17.7 % (11.5-14.5)
[2019-04-01 05:13] LABS: NEUTROPHILS % (AUTO) 92.4 % (40.0-70.0)
[2019-04-01 05:23] LABS: CALCIUM, TOTAL 8.4 mg/dL (8.8-10.5); CREATININE 2.32 mg/dL (0.60-1.30); POTASSIUM 3.4 mmol/L (3.5-5.1); VANCOMYCIN,RANDOM 20.5 mcg/mL (25.0-50.0)
[2019-04-01] MEDS: PIPERACILLIN SODIUM/TAZOBACTAM 2.25 GM in DEXTROSE 5%-WATER 50 ML IV SCH ×3 (07:03→21:55)
[2019-04-01] MEDS: VANCOMYCIN HCL 125 MG/2.5 ML SOLUTION ORAL.SYG PO SCH ×3 (07:03→17:15)
[2019-04-01] MEDS: METOPROLOL SUCCINATE 50 MG ER TABLET PO SCH (07:06)
[2019-04-01 07:25] LABS: GLUCOSE,POINT OF CARE 255 MG/DL (70-110)
[2019-04-01 07:36] LABS: GLUCOSE,POINT OF CARE 294 MG/DL (70-110)
[2019-04-01 07:37] LABS: GLUCOSE,POINT OF CARE 237 MG/DL (70-110)
[2019-04-01 08:00] VITALS: BP 138/55
[2019-04-01] MEDS: MULTIVITAMINS, THERAPEUTIC 15 ML UDCUP PO SCH (08:08)
[2019-04-01] MEDS ORDERED: ROCURONIUM BROMIDE 10 MG/ML 5 ML VIAL ONE (08:46)
[2019-04-01] MEDS ORDERED: FentaNYL CITRATE-PF 100 MCG/2 ML VIAL ONE (08:50)
[2019-04-01] MEDS: PANTOPRAZOLE SODIUM 40 MG/VIAL IVP SCH ×2 (10:12→20:44)
[2019-04-01] MEDS: POTASSIUM CHL 10 MEQ/WATER 50 ML IV PRN ×6 (11:00→18:57)
[2019-04-01] MEDS: INSULIN REGULAR, HUMAN 100 UNITS/ML SQ PRN ×3 (11:46→23:44)
[2019-04-01 12:00] VITALS: BP 152/76
[2019-04-01] MEDS ORDERED: LIDOCAINE 2% 30 ML JELLY TP ONE (12:00)
[2019-04-01 12:06] LABS: GLUCOSE,POINT OF CARE 185 MG/DL (70-110)
[2019-04-01] MEDS ORDERED: VANCOMYCIN HCL 1 GM/D5% WATER 200 ML IV ONE (13:00)
[2019-04-01 16:00] VITALS: BP 146/72
[2019-04-01 19:10] LABS: GLUCOSE,POINT OF CARE 173 MG/DL (70-110)
[2019-04-01 20:00] VITALS: BP 134/56
[2019-04-02] VITALS: BP 151/78
[2019-04-02] MEDS: ACETYLCYSTEINE 10% 100 MG/ML 4 ML NEB SOLUTION NEB SCH ×4 (02:10→19:48)
[2019-04-02 04:00] VITALS: BP 172/78
[2019-04-02] MEDS: INSULIN REGULAR, HUMAN 100 UNITS/ML SQ PRN ×3 (04:58→23:54)
[2019-04-02 05:16] LABS: BASOPHILS % (AUTO) 0.4 % (0.0-2.0); EOSINOPHILS % (AUTO) 0.8 % (1.0-6.0); HEMATOCRIT 24.6 % (36-46); HEMOGLOBIN 8.3 g/dL (12.0-16.0); LYMPHOCYTES # (AUTO) 0.4 K/uL (1.0-4.8); LYMPHOCYTES % (AUTO) 4.1 % (22.0-44.0); MEAN CORPUSCULAR HEMOGLOBIN 29.2 pg (26.0-34.0); MEAN CORPUSCULAR HGB CONC 33.5 G/dL (31.0-37.0); MEAN CORPUSCULAR VOLUME 87 fL (80-100); MONOCYTES # (AUTO) 0.5 K/uL (0.1-1.0); MONOCYTES % (AUTO) 4.7 % (2.0-9.0); NEUTROPHILS # (AUTO) 9.1 K/uL (1.8-7.7); PLATELET COUNT (AUTO) 332 K/uL (150-450); RED BLOOD CELL COUNT(AUTO) 2.83 MIL/uL (4.00-5.20); RED CELL DISTRIBUTION WIDTH 17.3 % (11.5-14.5)
[2019-04-02 05:29] LABS: ALBUMIN 2.1 g/dL (3.4-5.0); CREATININE 2.15 mg/dL (0.60-1.30); POTASSIUM 3.8 mmol/L (3.5-5.1); TOTAL PROTEIN, SERUM 5.6 g/dL (6.4-8.2)
[2019-04-02] MEDS: VANCOMYCIN HCL 125 MG/2.5 ML SOLUTION ORAL.SYG PO SCH ×5 (06:00→23:54)
[2019-04-02] MEDS: PIPERACILLIN SODIUM/TAZOBACTAM 2.25 GM in DEXTROSE 5%-WATER 50 ML IV SCH ×2 (06:06→15:09)
[2019-04-02 07:00] LABS: GLUCOSE,POINT OF CARE 148 MG/DL (70-110)
[2019-04-02 07:00] LABS: GLUCOSE,POINT OF CARE 176 MG/DL (70-110)
[2019-04-02] MEDS: ALBUTEROL SULFATE 2.5 MG/0.5 ML NEB SOLUTION NEB PRN ×3 (07:57→19:48)
[2019-04-02] MEDS: IPRATROPIUM BROMIDE 0.5 MG/2.5 ML NEB SOLUTION NEB PRN ×3 (07:57→19:48)
[2019-04-02 08:00] VITALS: BP 140/75
[2019-04-02] MEDS: MULTIVITAMINS, THERAPEUTIC 15 ML UDCUP PO SCH (09:00)
[2019-04-02] MEDS: METOPROLOL SUCCINATE 50 MG ER TABLET PO SCH ×2 (09:00→16:56)
[2019-04-02 12:00] VITALS: BP 129/55
[2019-04-02] MEDS ORDERED: PROPOFOL 1% 20 ML VIAL IVP ONE (12:00)
[2019-04-02] MEDS: EPOETIN ALFA 10,000 UNITS/ML VIAL SQ SCH (12:03)
[2019-04-02] MEDS: PANTOPRAZOLE SODIUM 40 MG/VIAL IVP SCH ×2 (12:03→21:00)
[2019-04-02 14:18] LABS: GLUCOSE,POINT OF CARE 170 MG/DL (70-110)
[2019-04-02 16:00] VITALS: BP 140/62
[2019-04-02] MEDS: HYDROCODONE/ACETAMINOPHEN 10-325 MG TABLET PO PRN (16:56)
[2019-04-02 20:00] VITALS: BP 128/53
[2019-04-03] VITALS: BP 154/71
[2019-04-03 02:17] LABS: GLUCOSE,POINT OF CARE 232 MG/DL (70-110)
[2019-04-03] MEDS: ACETYLCYSTEINE 10% 100 MG/ML 4 ML NEB SOLUTION NEB SCH ×2 (02:35→08:08)
[2019-04-03] MEDS: ALBUTEROL SULFATE 2.5 MG/0.5 ML NEB SOLUTION NEB PRN ×2 (02:36→08:08)
[2019-04-03] MEDS: IPRATROPIUM BROMIDE 0.5 MG/2.5 ML NEB SOLUTION NEB PRN ×2 (02:36→08:08)
[2019-04-03 04:00] VITALS: BP 167/80
[2019-04-03 04:06] LABS: GLUCOSE,POINT OF CARE 154 MG/DL (70-110)
[2019-04-03] MEDS: VANCOMYCIN HCL 125 MG/2.5 ML SOLUTION ORAL.SYG PO SCH (05:39)
[2019-04-03] MEDS: INSULIN REGULAR, HUMAN 100 UNITS/ML SQ PRN (05:41)
[2019-04-03 05:52] LABS: BASOPHILS % (AUTO) 0.2 % (0.0-2.0); EOSINOPHILS % (AUTO) 0.9 % (1.0-6.0); HEMATOCRIT 22.8 % (36-46); HEMOGLOBIN 7.7 g/dL (12.0-16.0); LYMPHOCYTES # (AUTO) 0.6 K/uL (1.0-4.8); LYMPHOCYTES % (AUTO) 5.8 % (22.0-44.0); MEAN CORPUSCULAR HEMOGLOBIN 29.6 pg (26.0-34.0); MEAN CORPUSCULAR HGB CONC 33.9 G/dL (31.0-37.0); MEAN CORPUSCULAR VOLUME 87 fL (80-100); MONOCYTES # (AUTO) 0.5 K/uL (0.1-1.0); MONOCYTES % (AUTO) 4.9 % (2.0-9.0); NEUTROPHILS # (AUTO) 8.4 K/uL (1.8-7.7); PLATELET COUNT (AUTO) 298 K/uL (150-450); RED BLOOD CELL COUNT(AUTO) 2.61 MIL/uL (4.00-5.20); RED CELL DISTRIBUTION WIDTH 17.3 % (11.5-14.5)
[2019-04-03 06:07] LABS: ALBUMIN 2.1 g/dL (3.4-5.0); BILIRUBIN,TOTAL 0.8 mg/dL (0.1-1.0); CALCIUM, TOTAL 8.1 mg/dL (8.8-10.5); CREATININE 2.1 mg/dL (0.60-1.30); TOTAL PROTEIN, SERUM 5.7 g/dL (6.4-8.2)
[2019-04-03 06:09] LABS: NEUTROPHILS % (AUTO) 88.2 % (40.0-70.0)
[2019-04-03] MEDS: POTASSIUM CHLORIDE 20 MEQ ER TABLET PO PRN (06:28)
[2019-04-03 08:00] VITALS: BP 158/65
[2019-04-03 08:16] LABS: GLUCOSE,POINT OF CARE 174 MG/DL (70-110)
[2019-04-03] MEDS: METOPROLOL SUCCINATE 50 MG ER TABLET PO SCH (08:23)
[2019-04-03] MEDS: MULTIVITAMINS, THERAPEUTIC 15 ML UDCUP PO SCH (08:24)
[2019-04-03] MEDS: PANTOPRAZOLE SODIUM 40 MG/VIAL IVP SCH (08:24)
[2019-04-03] MEDS ORDERED: POVIDONE-IODINE 10% 120 ML SOLUTION TP SCH (09:00)
[2019-04-03] MEDS ORDERED: HYDROGEN PEROXIDE 473 ML SOLUTION TP SCH (09:00)
== END 2019-04-03 10:40 | DRG 4 ==
LOC: EMS 19:18 → 5N 21:15 → ICU 03-20 11:19 → 5S 03-28 11:20 → ICU 03-29 12:33
PROVIDERS: ADMIT Internal Medicine; ATTEND Internal Medicine
PROC: 30233N1 Transfusion of Nonautologous Red Blood Cells into Peripheral Vein, Percutaneous Approach (ICD-10-PCS; 2019-03-19)
PROC: 5A1955Z Respiratory Ventilation, Greater than 96 Consecutive Hours (ICD-10-PCS; principal; 2019-03-20)
PROC: 0BH17EZ Insertion of Endotracheal Airway into Trachea, Via Natural or Artificial Opening (ICD-10-PCS; 2019-03-20)
PROC: 02HV33Z Insertion of Infusion Device into Superior Vena Cava, Percutaneous Approach (ICD-10-PCS; 2019-03-20)
PROC: B548ZZA Ultrasonography of Superior Vena Cava, Guidance (ICD-10-PCS; 2019-03-20)
PROC: 0DB68ZX Excision of Stomach, Via Natural or Artificial Opening Endoscopic, Diagnostic (ICD-10-PCS; 2019-03-24)
PROC: 5A1955Z Respiratory Ventilation, Greater than 96 Consecutive Hours (ICD-10-PCS; 2019-03-29)
PROC: 0B113F4 Bypass Trachea to Cutaneous with Tracheostomy Device, Percutaneous Approach (ICD-10-PCS; 2019-04-01)
PROC: 0BJ08ZZ Inspection of Tracheobronchial Tree, Via Natural or Artificial Opening Endoscopic (ICD-10-PCS; 2019-04-01)
PROC: 0DH63UZ Insertion of Feeding Device into Stomach, Percutaneous Approach (ICD-10-PCS; 2019-04-02)
DX: A41.9 Sepsis, unspecified organism (principal); E43 Unspecified severe protein-calorie malnutrition; R65.21 Severe sepsis with septic shock; J69.0 Pneumonitis due to inhalation of food and vomit; N17.0 Acute kidney failure with tubular necrosis; J96.01 Acute respiratory failure with hypoxia; K26.4 Chronic or unspecified duodenal ulcer with hemorrhage; I20.0 Unstable angina; N39.0 Urinary tract infection, site not specified; D62 Acute posthemorrhagic anemia; E87.1 Hypo-osmolality and hyponatremia; E87.0 Hyperosmolality and hypernatremia; E87.4 Mixed disorder of acid-base balance; I50.32 Chronic diastolic (congestive) heart failure; I13.0 Hypertensive heart and chronic kidney disease with heart failure and stage 1 through stage 4 chronic kidney disease, or unspecified chronic kidney disease; E87.6 Hypokalemia; E83.42 Hypomagnesemia; N18.9 Chronic kidney disease, unspecified; E11.65 Type 2 diabetes mellitus with hyperglycemia; I35.1 Nonrheumatic aortic (valve) insufficiency; E11.22 Type 2 diabetes mellitus with diabetic chronic kidney disease; F03.90 Unspecified dementia, unspecified severity, without behavioral disturbance, psychotic disturbance, mood disturbance, and anxiety; Z79.82 Long term (current) use of aspirin; Z79.899 Other long term (current) drug therapy
CPT/HCPCS: 36600; 70450; 71250; 72192; 74018; 74150; 82010; 82270; 82271; 82570; 82805; 83605; 83735; 84100; 84105; 84132; 84133; 84145; 84156; 84300; 84436; 84439; 84443; 84540; 85014; 85018; 86850; 86900; 86901; 86920; 87040; 87070; 87081; 87086; 87205; 87324; 87449; 88305; 88312; 88313; 92507; 93005; 93306; 93970; 94002; 94003; 94640; 94660; 94667; 94799; 97162; 97530; 99291; C9113; G0378; G0480; G0481; J0885; J1160; J1265; J1644; J1940; J2543; J2704; J3010; J3370; J3475; J3480; J3490; J7030; J7040; J7050; J7060; P9016; P9046